=== PATIENT | female | born 1930 | race Caucasian/White ===

== ENCOUNTER 2017-11-22 04:55 | Emergency (ER) | payer MEDICARE, OTHER ==
[2017-11-22] MEDS: Metoclopramide 10 MG/2 ML SDV IVPUSH ONE (05:30)
[2017-11-22 05:33] VITALS: BP 193/69
[2017-11-22] MEDS: Take Home: Doxycycline 100 MG Tab, 4 Tab Pack PO ONE (05:46)
--- NOTE | 2017-11-22 09:53 | EDM.PDOC ---
ED HPI GENERAL MEDICAL PROBLEM - General Chief Complaint: Headache Stated Complaint: Headache Time Seen by Provider: 11/22/17 05:10 Source of Information: Reports: Patient History Limitations: Reports: No Limitations - History of Present Illness INITIAL COMMENTS - FREE TEXT/NARRATIVE: Pt. complains of R frontal headache that she has been experiencing for over a week. States that it is intermittent and worse with palpation of the area. She states that she has been quite congested and has had upper resp. tract symptoms. She states that the headache is always located in the R frontal area and doesn' t deviate in location or severity. Location: Reports: Head, Face Quality: Reports: Ache Severity: Moderate Treatments MANAGER INTERN: Reports: Acetaminophen Other Treatments MANAGER INTERN: at 0230 Right frontal headache Pain Score (Numeric/FACES): 1 - Related Data Allergies Allergy/AdvReac Type Severity Reaction Status Date / Time No Known Allergies Allergy Verified 11/22/17 05:09 Home Meds: Home Meds Aspirin/Dipyridamole [Aggrenox 200-25 MG] 1 cap PO BID 09/26/14 [History] Calcium Carbonate/Vitamin D3 [Calcium 500-Vit D3 400 Tablet] 1 each PO TID 09/26 [History] Clobetasol [Temovate 0.05% Oint] 1 applic TOP BEDTIME PRN 09/26/14 [History] Enalapril [Vasotec] 5 mg PO DAILY 09/26/14 [History] Ferrous Sulfate 325 mg PO BID 09/26/14 [History] Furosemide [Lasix] 20 mg PO DAILY 09/26/14 [History] Levothyroxine 175 mcg PO ACBREAKFAST 09/26/14 [History] Metoprolol Succinate [Toprol XL] 75 mg PO DAILY 09/26/14 [History] Multivitamin with Minerals [Multiple Vitamin] 1 tab PO DAILY 09/26/14 [History] Simvastatin 40 mg PO BEDTIME 09/26/14 [History] Albuterol [Proventil HFA] 2 puff INH Q4H PRN 11/07/14 [History] Beclomethasone Dipropionate [Qvar 40 Mcg] 2 inhalation PO BID 11/07/14 [History] ALPRAZolam [Xanax] 0.25 mg PO TID PRN 03/06/17 [History] Acetaminophen [Tylenol Extra Strength] 1,000 mg PO TID 03/06/17 [History] Aspirin [Ecotrin] 325 g PO DAILY 03/06/17 [History] Cholecalciferol (Vitamin D3) [Vitamin D3] 1,000 unit PO DAILY 03/06/17 [History] Dextromethorphan HBr [Robitussin] 5 mg PO DAILY PRN 03/06/17 [History] Docusate Sodium/Sennosides [Senna Plus] 1 tab PO BID PRN 03/06/17 [History] Gabapentin [Neurontin] 100 mg PO QAM 03/06/17 [History] Gabapentin [Neurontin] 300 mg PO BEDTIME 03/06/17 [History] Loperamide [Imodium] 1 - 2 tab PO DAILY PRN 03/06/17 [History] Maxivision 2 tab PO BID 03/06/17 [History] Omeprazole Magnesium [Prilosec Otc] 20 mg PO DAILY 03/06/17 [History] Sertraline [Zoloft] 50 mg PO BEDTIME 03/06/17 [History] Vitamin B Complex [Super B-50 Complex] 1 tab PO DAILY 03/06/17 [History] predniSONE [Prednisone] 20 mg PO DAILY 03/06/17 [History] tiZANidine HCl [Tizanidine HCl] 2 mg PO TID PRN 03/06/17 [History] Cyanocobalamin (Vitamin B12) [Vitamin B12] 1,000 mcg PO DAILY 08/02/17 [History] Azithromycin [Zithromax] 250 mg PO DAILY 08/23/17 [History] Past Medical History Cardiovascular History: Reports: Hypertension, Other (See Below) Other Cardiovascular History: ankle edema Musculoskeletal History: Reports: Back Pain, Chronic, Other (See Below) Other Musculoskeletal History: shoulder pain Neurological History: Reports: CVA, TIA Psychiatric History: Reports: Anxiety Endocrine/Metabolic History: Reports: Hypothyroidism Social & Family History - Tobacco Use Smoking Status *Q: Never Smoker Used Tobacco, but Quit: No Second Hand Smoke Exposure: No - Alcohol Use Days Per Week of Alcohol Use: 0 - Recreational Drug Use Recreational Drug Use: No ED ROS GENERAL - Review of Systems Review Of Systems: See Below Constitutional: Reports: No Symptoms HEENT: Reports: Rhinitis, Sinus Problem, Throat Pain Respiratory: Reports: No Symptoms Cardiovascular: Reports: No Symptoms Endocrine: Reports: No Symptoms GI/Abdominal: Reports: No Symptoms : Reports: No Symptoms Musculoskeletal: Reports: No Symptoms Skin: Reports: No Symptoms Neurological: Reports: Headache Psychiatric: Reports: No Symptoms Hematologic/Lymphatic: Reports: No Symptoms Immunologic: Reports: No Symptoms ED EXAM, GENERAL - Physical Exam Exam: See Below Exam Limited By: No Limitations General Appearance: Alert, WD/WN, No Apparent Distress Eye Exam: Bilateral Eye: EOMI, Normal Fundi, Normal Inspection, PERRL Ears: Normal External Exam, Normal Canal, Hearing Grossly Normal, Normal TMs Ear Exam: Bilateral Ear: Auricle Normal, Canal Normal, TM normal Nose: Normal Inspection, Nasal Tenderness, Other (pain on palpation/percussion of frontal sinuses) Throat/Mouth: Normal Inspection, Normal Lips, Normal Teeth, Normal Gums, Normal Oropharynx, Normal Voice, No Airway Compromise Head: Atraumatic, Normocephalic Neck: Normal Inspection, Supple, Non-Tender, Full Range of Motion Respiratory/Chest: No Respiratory Distress, Lungs Clear, Normal Breath Sounds, No Accessory Muscle Use, Chest Non-Tender Cardiovascular: Normal Peripheral Pulses, Regular Rate, Rhythm, No Edema, No Gallop, No JVD, No Murmur, No Rub Peripheral Pulses: 4+: Radial (L), Radial (R) GI/Abdominal: Normal Bowel Sounds, Soft, Non-Tender, No Organomegaly, No Distention, No Abnormal Bruit, No Mass (Female) Exam: Deferred Rectal (Female) Exam: Deferred Back Exam: Normal Inspection, Full Range of Motion, NT Extremities: Normal Inspection, Normal Range of Motion, Non-Tender, Normal Capillary Refill, No Pedal Edema Neurological: Alert, Oriented, CN II-XII Intact, Normal Cognition, Normal Gait, Normal Reflexes, No Motor/Sensory Deficits Psychiatric: Normal Affect, Normal Mood Skin Exam: Warm, Dry, Intact, Normal Color, No Rash Lymphatic: No Adenopathy Course - Vital Signs Last Recorded V/S: Last Vital Signs Temp 36.1 C 11/22/17 04:55 Pulse 69 11/22/17 05:28 Resp 16 11/22/17 05:28 BP 193/69 H 11/22/17 05:28 Pulse Ox 94 L 11/22/17 04:55 - Orders/Labs/Meds Meds: Medications Discontinued Medications Generic Name Dose Route Start Last Admin Trade Name Freq PRN Reason Stop Dose Admin Doxycycline Monohydrate 1 packet 11/22/17 05:40 11/22/17 05:46 Take Home: Doxycycline 100 Mg, 4 Tab Pack PO 11/22/17 05:41 1 packet ONETIME ONE Administration Metoclopramide HCl 10 mg 11/22/17 05:21 11/22/17 05:30 Reglan IVPUSH 11/22/17 05:22 10 mg ONETIME ONE Administration Departure - Departure Time of Disposition: 05:45 Disposition: Home, Self-Care 01 Condition: Good Clinical Impression: Acute frontal sinusitis - Discharge Information Instructions: Sinusitis, Adult, Sinus Headache, Doxycycline tablets or capsules Referrals: PCP,Unobtain [Primary Care Provider] - Forms: ED Department Discharge Additional Instructions: doxycyline 100mg twice daily for 7 days. Make sure to finish entire course of medication. Follow-up with rheumatology regarding the hip pain. Follow-up with Dr. Hernandez in 10-14 days for recheck.
[2017-11-22] MEDS ORDERED: Lactated Ringers 1,000 ML IV SCH (10:15)
== END 2017-11-22 05:55 | disposition home or self-care (01) ==
LOC: VM.ED 04:55
DX: J01.10 Acute frontal sinusitis, unspecified (principal); I10 Essential (primary) hypertension; E03.9 Hypothyroidism, unspecified; F41.9 Anxiety disorder, unspecified; Z86.73 Personal history of transient ischemic attack (TIA), and cerebral infarction without residual deficits; Z79.82 Long term (current) use of aspirin; Z79.899 Other long term (current) drug therapy
CPT/HCPCS: 96372; 99283; A9270; J2765

== ENCOUNTER 2017-11-30 06:56 | Observation (INO) | payer MEDICARE, OTHER ==
[2017-11-30] MEDS ORDERED: HYDROmorphone 1 MG/ML Syringe IM ONE (07:37)
[2017-11-30] MEDS ORDERED: ALBUTEROL INH PRN (11:09)
[2017-11-30] MEDS ORDERED: guaiFENesin 100 MG/5 ML Soln 10 ML UD Cup PO PRN (11:09)
[2017-11-30] MEDS ORDERED: Docusate Sodium 100 MG Cap PO PRN (11:09)
[2017-11-30] MEDS: Metoprolol Succinate 25 MG Tab.ER PO SCH (11:45)
[2017-11-30] MEDS: GABAPENTIN 100 MG PO SCH ×2 (11:46→20:31)
[2017-11-30] MEDS: PREDNISONE 5 MG PO SCH (11:46)
[2017-11-30] MEDS: PREDNISONE 2.5 MG PO SCH (11:46)
[2017-11-30] MEDS: Ferrous Sulfate 325 MG Tab PO SCH ×2 (11:48→18:09)
[2017-11-30] MEDS: Cholecalciferol (Vitamin D3) 1,000 Unit Tab PO SCH (11:49)
[2017-11-30] MEDS: Beta-Carotene (Vitamin A) w/Vitamin C & E plus Minerals Tab PO SCH ×2 (11:49→20:34)
[2017-11-30] MEDS: Vitamin B Complex Tab.ER PO SCH (11:49)
[2017-11-30] MEDS: Calcium Carbonate/Vitamin D3 1250 MG-200 Unit Tab PO SCH ×2 (11:49→20:34)
[2017-11-30] MEDS: Omeprazole 20 MG Cap.CR PO SCH (11:49)
[2017-11-30] MEDS: tiZANidine 4 MG Tab PO PRN (11:50)
[2017-11-30] MEDS: Cyanocobalamin (Vitamin B12) 1,000 MCG Tab PO SCH (11:50)
[2017-11-30] MEDS: Acetaminophen/HYDROcodone 325-10 MG Tab PO PRN ×2 (15:02→20:34)
--- NOTE | 2017-11-30 16:17 | EDM.PDOC ---
ED HPI GENERAL MEDICAL PROBLEM - General Chief Complaint: Back Pain or Injury Stated Complaint: back pain Time Seen by Provider: 11/30/17 06:56 Source of Information: Reports: Patient History Limitations: Reports: No Limitations - History of Present Illness INITIAL COMMENTS - FREE TEXT/NARRATIVE: Please use as admission H and P. Pt. presents to ER with low back pain with radiation down both legs. The radiation into the legs is intermittent. Denies any fever or chills. No urinary incontinence or retention. She states that she was seen in the clinic yesterday and had an L spine series. These images were tracked down, and the radiologist did not note any acute fracture or other pathology. Pt. has severe spinal arthritis, osteopenia, and spinal stenosis. These chronic medical issues have been problematic in the past. Pt. does see rheumatology and is chronicially on steroid. Pt. mother and pt. do not wish for pt. to take any narcotic pain medication, and her kidney function doesnt allow her to take NSAIDS. Onset: Today Location: Reports: Back Quality: Reports: Ache, Stabbing Severity: Severe Context: Denies: Trauma Associated Symptoms: Reports: No Other Symptoms Back Pain Score (Numeric/FACES): 3 - Related Data Allergies Allergy/AdvReac Type Severity Reaction Status Date / Time No Known Allergies Allergy Verified 11/22/17 05:09 Home Meds: Home Meds Aspirin/Dipyridamole [Aggrenox 200-25 MG] 1 cap PO BID 09/26/14 [History] Calcium Carbonate/Vitamin D3 [Calcium 500-Vit D3 400 Tablet] 1 each PO BID 09/26 [History] Ferrous Sulfate 325 mg PO BID 09/26/14 [History] Furosemide [Lasix] 20 mg PO DAILY 09/26/14 [History] Metoprolol Succinate [Toprol XL] 75 mg PO DAILY 09/26/14 [History] Simvastatin 40 mg PO BEDTIME 09/26/14 [History] Albuterol [Proventil HFA] 2 puff INH Q4H PRN 11/07/14 [History] ALPRAZolam [Xanax] 0.25 mg PO TID PRN 03/06/17 [History] Aspirin [Ecotrin] 325 mg PO DAILY 03/06/17 [History] Cholecalciferol (Vitamin D3) [Vitamin D3] 1,000 unit PO DAILY 03/06/17 [History] Gabapentin [Neurontin] 100 mg PO DAILY 03/06/17 [History] Gabapentin [Neurontin] 300 mg PO BEDTIME 03/06/17 [History] Loperamide [Imodium] 1 - 2 tab PO DAILY PRN 03/06/17 [History] Maxivision 2 tab PO BID 03/06/17 [History] Omeprazole Magnesium [Prilosec Otc] 20 mg PO DAILY 03/06/17 [History] Sertraline [Zoloft] 50 mg PO BEDTIME 03/06/17 [History] Vitamin B Complex [Super B-50 Complex] 1 tab PO DAILY 03/06/17 [History] tiZANidine HCl [Tizanidine HCl] 2 mg PO TID PRN 03/06/17 [History] Cyanocobalamin (Vitamin B12) [Vitamin B12] 1,000 mcg PO DAILY 08/02/17 [History] Acetaminophen [Tylenol] 650 mg PO Q4H PRN 11/30/17 [History] Docusate Sodium 100 - 200 mg PO BID PRN 11/30/17 [History] Levothyroxine 175 mcg PO DAILY 11/30/17 [History] guaiFENesin [Robitussin] 100 mg PO Q4H PRN 11/30/17 [History] predniSONE [Prednisone] 7.5 mg PO DAILY 11/30/17 [History] Past Medical History Cardiovascular History: Reports: Hypertension, Other (See Below) Other Cardiovascular History: ankle edema Musculoskeletal History: Reports: Back Pain, Chronic, Other (See Below) Other Musculoskeletal History: shoulder pain Neurological History: Reports: CVA, TIA Psychiatric History: Reports: Anxiety Endocrine/Metabolic History: Reports: Hypothyroidism Social & Family History - Tobacco Use Smoking Status *Q: Never Smoker - Caffeine Use Caffeine Use: Reports: Coffee - Recreational Drug Use Recreational Drug Use: No ED ROS GENERAL - Review of Systems Review Of Systems: See Below Constitutional: Reports: No Symptoms HEENT: Reports: No Symptoms Respiratory: Reports: No Symptoms Cardiovascular: Reports: No Symptoms Endocrine: Reports: No Symptoms GI/Abdominal: Reports: No Symptoms : Reports: No Symptoms Musculoskeletal: Reports: Back Pain Skin: Reports: No Symptoms Neurological: Reports: No Symptoms Psychiatric: Reports: No Symptoms Hematologic/Lymphatic: Reports: No Symptoms Immunologic: Reports: No Symptoms ED EXAM, GENERAL - Physical Exam Exam: See Below Exam Limited By: No Limitations General Appearance: Alert, WD/WN, No Apparent Distress Neck: Normal Inspection, Supple, Non-Tender, Full Range of Motion Respiratory/Chest: No Respiratory Distress, Lungs Clear, Normal Breath Sounds, No Accessory Muscle Use, Chest Non-Tender Cardiovascular: Normal Peripheral Pulses, Regular Rate, Rhythm, No Edema, No Gallop, No JVD, No Murmur, No Rub Peripheral Pulses: 4+: Radial (L), Radial (R) GI/Abdominal: Normal Bowel Sounds, Soft, Non-Tender, No Organomegaly, No Distention, No Abnormal Bruit, No Mass (Female) Exam: Deferred Rectal (Female) Exam: Deferred Back Exam: Decreased Range of Motion, Muscle Spasm, Paraspinal Tenderness, Vertebral Tenderness Extremities: Normal Inspection, Normal Range of Motion, Non-Tender, Normal Capillary Refill, No Pedal Edema Neurological: Alert, Oriented, CN II-XII Intact, Normal Cognition, Normal Gait, Normal Reflexes, No Motor/Sensory Deficits Psychiatric: Normal Affect, Normal Mood Skin Exam: Warm, Dry, Intact, Normal Color, No Rash Course - Vital Signs Last Recorded V/S: Last Vital Signs Temp 36.9 C 11/30/17 14:00 Pulse 80 11/30/17 14:00 Resp 22 H 11/30/17 14:00 BP 151/68 H 11/30/17 14:00 Pulse Ox 92 L 11/30/17 14:00 - Orders/Labs/Meds Orders: Medication Orders Hydrocodone Bitart/Acetaminophen ([place] 325-10 Mg) 1 tab PO Q4H PRN PRN Reason: Pain Last Admin: 11/30/17 15:02 Dose: 1 tab Alprazolam (Xanax) 0.25 mg PO TID PRN PRN Reason: Anxiety Aspirin (Ecotrin) 325 mg PO DAILY [facility] Calcium Carbonate (Calcium Carbonate/Vitamin D 1250 Mg-200 Unit) 1 tab PO BID [facility] Last Admin: 11/30/17 11:49 Dose: 1 tab Cholecalciferol (Vitamin D3) 1,000 units PO DAILY [facility] Last Admin: 11/30/17 11:49 Dose: 1,000 units Cyanocobalamin (Vitamin B12) 1,000 mcg PO DAILY [facility] Last Admin: 11/30/17 11:50 Dose: 1,000 mcg Dipyridamole/Aspirin (Aggrenox 200-25 Mg) 1 cap PO BID [facility] Docusate Sodium (Colace) 100 - 200 mg PO BID PRN PRN Reason: Constipation Ferrous Sulfate (Ferrous Sulfate) 325 mg PO BIDMEALS [facility] Last Admin: 11/30/17 11:48 Dose: 325 mg Furosemide (Lasix) 20 mg PO DAILY [facility] Gabapentin (Neurontin) 100 mg PO DAILY [facility] Last Admin: 11/30/17 11:46 Dose: 100 mg Gabapentin (Neurontin) 300 mg PO BEDTIME [facility] Guaifenesin (Robitussin) 100 mg PO Q4H PRN PRN Reason: Congestion Levothyroxine Sodium (Levothyroxine) 175 mcg PO DAILY [facility] Last Admin: 11/30/17 11:45 Dose: 175 mcg Metoprolol Succinate (Toprol Xl) 75 mg PO DAILY [facility] Last Admin: 11/30/17 11:45 Dose: 75 mg Multivitamins/Minerals (Prosight) 2 tab PO BID [facility] Last Admin: 11/30/17 11:49 Dose: 2 tab Albuterol [Proventil (Hfa] (Own Supply)) 2 puff INH Q4H PRN PRN Reason: Shortness of Breath Prednisone 2.5mg ( (Own Supply)) 1 each PO DAILY [facility] Stop: 12/04/17 08:01 Last Admin: 11/30/17 11:46 Dose: 1 each Omeprazole (Omeprazole) 20 mg PO DAILY [facility] Last Admin: 11/30/17 11:49 Dose: 20 mg Prednisone (Prednisone) 5 mg PO DAILY [facility] Last Admin: 11/30/17 11:46 Dose: 5 mg Sertraline HCl (Zoloft) 50 mg PO BEDTIME [facility] Simvastatin (Zocor) 40 mg PO BEDTIME [facility] Tizanidine HCl (Zanaflex) 2 mg PO TID PRN PRN Reason: Muscle Spasm Last Admin: 11/30/17 11:50 Dose: 2 mg Vitamin B Complex (Balanced B-50) 1 each PO DAILY [facility] Last Admin: 11/30/17 11:49 Dose: 1 each Meds: Medications Generic Name Dose Route Start Last Admin Trade Name Freq PRN Reason Stop Dose Admin Hydrocodone Bitart/Acetaminophen 1 tab 11/30/17 08:46 11/30/17 15:02 [place] 325-10 Mg PO 1 tab Q4H PRN Administration Pain Alprazolam 0.25 mg 11/30/17 11:09 Xanax PO TID PRN Anxiety Aspirin 325 mg 12/01/17 08:00 Ecotrin PO DAILY [facility] Calcium Carbonate 1 tab 11/30/17 11:30 11/30/17 11:49 Calcium Carbonate/Vitamin D 1250 Mg-200 Unit PO 1 tab BID [facility] Administration Cholecalciferol 1,000 units 11/30/17 11:30 11/30/17 11:49 Vitamin D3 PO 1,000 units DAILY [facility] Administration Cyanocobalamin 1,000 mcg 11/30/17 11:30 11/30/17 11:50 Vitamin B12 PO 1,000 mcg DAILY [facility] Administration Dipyridamole/Aspirin 1 cap 11/30/17 20:00 Aggrenox 200-25 Mg PO BID [facility] Docusate Sodium 100 - 200 mg 11/30/17 11:09 Colace PO BID PRN Constipation Ferrous Sulfate 325 mg 11/30/17 11:30 11/30/17 11:48 Ferrous Sulfate PO 325 mg BIDMEALS [facility] Administration Furosemide 20 mg 12/01/17 08:00 Lasix PO DAILY [facility] Gabapentin 100 mg 11/30/17 11:30 11/30/17 11:46 Neurontin PO 100 mg DAILY [facility] Administration Gabapentin 300 mg 11/30/17 20:00 Neurontin PO BEDTIME [facility] Guaifenesin 100 mg 11/30/17 11:09 Robitussin PO Q4H PRN Congestion Levothyroxine Sodium 175 mcg 11/30/17 11:30 11/30/17 11:45 Levothyroxine PO 175 mcg DAILY [facility] Administration Metoprolol Succinate 75 mg 11/30/17 11:30 11/30/17 11:45 Toprol Xl PO 75 mg DAILY [facility] Administration Multivitamins/Minerals 2 tab 11/30/17 11:30 11/30/17 11:49 Prosight PO 2 tab BID [facility] Administration Albuterol [Proventil 2 puff 11/30/17 11:09 Hfa] (Own Supply) INH Q4H PRN Shortness of Breath Prednisone 2.5mg ( 1 each 11/30/17 11:45 11/30/17 11:46 Own Supply) PO 12/04/17 08:01 1 each DAILY [facility] Administration Omeprazole 20 mg 11/30/17 11:30 05/10/18 11:49 Omeprazole PO 20 mg DAILY [facility] Administration Prednisone 5 mg 11/30/17 11:45 11/30/17 11:46 Prednisone PO 5 mg DAILY [facility] Administration Sertraline HCl 50 mg 11/30/17 20:00 Zoloft PO BEDTIME [facility] Simvastatin 40 mg 11/30/17 20:00 Zocor PO BEDTIME [facility] Tizanidine HCl 2 mg 11/30/17 11:09 11/30/17 11:50 Zanaflex PO 2 mg TID PRN Administration Muscle Spasm Vitamin B Complex 1 each 11/30/17 11:45 11/30/17 11:49 Balanced B-50 PO 1 each DAILY [facility] Administration Discontinued Medications Generic Name Dose Route Start Last Admin Trade Name Freq PRN Reason Stop Dose Admin Hydromorphone HCl 1 mg 11/30/17 07:37 11/30/17 07:47 Dilaudid IM 11/30/17 07:38 1 mg ONETIME ONE Administration - Radiology Interpretation Free Text/Narrative:: L spine radiographs taken yesterday were negative for acute pathology. Departure - Departure Time of Disposition: 08:40 Disposition: Admitted As Inpatient 66 Clinical Impression: Low back pain of thoracolumbar region with sciatica - Discharge Information
[2017-11-30] MEDS: ASPIRIN PO SCH (20:32)
[2017-11-30] MEDS: SIMVASTATIN 40 MG PO SCH (20:32)
[2017-11-30] MEDS: DIPYRIDAMOLE PO SCH (20:32)
[2017-12-01] MEDS: Acetaminophen/HYDROcodone 325-10 MG Tab PO PRN ×2 (01:52→08:33)
[2017-12-01] MEDS: Beta-Carotene (Vitamin A) w/Vitamin C & E plus Minerals Tab PO SCH ×2 (08:26→20:01)
[2017-12-01] MEDS: ASPIRIN PO SCH ×2 (08:26→20:01)
[2017-12-01] MEDS: DIPYRIDAMOLE PO SCH ×2 (08:26→20:01)
[2017-12-01] MEDS: Vitamin B Complex Tab.ER PO SCH (08:27)
[2017-12-01] MEDS: Omeprazole 20 MG Cap.CR PO SCH (08:27)
[2017-12-01] MEDS: Cyanocobalamin (Vitamin B12) 1,000 MCG Tab PO SCH (08:27)
[2017-12-01] MEDS: Calcium Carbonate/Vitamin D3 1250 MG-200 Unit Tab PO SCH ×2 (08:27→20:01)
[2017-12-01] MEDS: Aspirin 325 MG Tab.EC PO SCH (08:27)
[2017-12-01] MEDS: GABAPENTIN 100 MG PO SCH ×2 (08:27→20:01)
[2017-12-01] MEDS: Ferrous Sulfate 325 MG Tab PO SCH ×2 (08:27→18:47)
[2017-12-01] MEDS: Cholecalciferol (Vitamin D3) 1,000 Unit Tab PO SCH (08:27)
[2017-12-01] MEDS: PREDNISONE 5 MG PO SCH (08:28)
[2017-12-01] MEDS: Metoprolol Succinate 25 MG Tab.ER PO SCH (08:29)
[2017-12-01] MEDS: PREDNISONE 2.5 MG PO SCH (08:30)
[2017-12-01] MEDS: FUROSEMIDE PO SCH (08:30)
[2017-12-01] MEDS: tiZANidine 4 MG Tab PO PRN (08:34)
--- NOTE | 2017-12-01 09:36 | PCM.PN ---
- General Info Date of Service: 12/01/17 Admission Dx/Problem (Free Text): Pt. presented to ER yesterday with low back pain with radiation down both legs. The radiation into the legs is intermittent. Denies any fever or chills. No urinary incontinence or retention. She states that she was seen in the clinic two days ago and had an L spine series. These images were tracked down, and the radiologist did not note any acute fracture or other pathology. Pt. has severe spinal arthritis, osteopenia, and spinal stenosis. These chronic medical issues have been problematic in the past. Pt. does see rheumatology and is chronicially on steroid. Pt. mother and pt. do not wish for pt. to take any narcotic pain medication, and her kidney function doesnt allow her to take NSAIDS. Subjective Update: Patient is quite lethargic this morning from pain medication. Patient denies any pain, states it is minimal. Patient speaks slowly and is groggy. Patient denies any problems. Functional Status: Reports: Pain Controlled, Tolerating Diet, Urinating Pain Score: 2 - Review of Systems General: Reports: Weakness, Fatigue. Denies: Fever Pulmonary: Denies: Shortness of Breath, Cough Cardiovascular: Denies: Chest Pain, Palpitations Gastrointestinal: Denies: Abdominal Pain, Nausea, Vomiting Skin: Reports: No Symptoms Neurological: Reports: Confusion. Denies: Dizziness, Headache - Patient Data Vitals - Most Recent: Last Vital Signs Temp 36.4 C 12/01/17 09:27 Pulse 84 12/01/17 09:27 Resp 18 12/01/17 09:27 BP 105/54 L 12/01/17 09:27 Pulse Ox 96 12/01/17 09:27 Weight - Most Recent: 77.746 kg I&O - Last 24 Hours: Intake & Output 11/30/17 12/01/17 12/01/17 22:59 06:59 14:59 Intake Total 240 250 180 Output Total 150 Balance 90 250 180 Lab Results Last 24 Hours: Laboratory Results - last 24 hr 11/30/17 11/30/17 11/30/17 Range/Units 09:19 09:19 09:19 WBC 15.2 H (4.0-10.0) x10^3/uL RBC 3.39 L (4.00-5.50) x10^6/uL Hgb 12.1 D (12.0-16.0) g/dL Hct 37.6 (33.0-47.0) % MCV 110.9 H D (78.0-93.0) fL MCH 35.7 H (26.0-32.0) pg MCHC 32.2 (32.0-36.0) g/dL RDW Coeff of Kimber 12.0 (10.0-15.0) % Plt Count 193 D (130-400) x10^3/uL Add Manual Diff Yes Neutrophils % (Manual) 86 H (50-80) % Band Neutrophils % 1 (0-6) % Lymphocytes % (Manual) 4 L (25-50) % Monocytes % (Manual) 9 (2-11) % Hypersegmented Neuts Moderate H Toxic Granulation Rare Platelet Estimate Adequate Polychromasia Rare Hypochromasia 1+ slight H Macrocytosis 2+ moderate H Tear Drop Cells Rare Ovalocytes 1+ slight H PT 10.0 (9.6-11.4) SEC INR 1.0 L (2.0-3.5) Sodium 140 (136-145) mmol/L Potassium 4.9 (3.5-5.1) mmol/L Chloride 102 (98-107) mmol/L Carbon Dioxide 28 (21-32) mmol/L Anion Gap 14.9 (10-20) mmol/L BUN 36 H (7-18) mg/dL Creatinine 1.5 H (0.55-1.02) mg/dL Est Cr Clr Drug Dosing 21.86 mL/min Estimated GFR (MDRD) 33 Glucose 117 H (74-106) mg/dL Calcium 9.2 (8.5-10.1) mg/dL Corrected Calcium 9.44 (8.5-10.1) mg/dL Total Bilirubin 0.6 (0.2-1.0) mg/dL AST 26 (15-37) U/L ALT 21 (14-59) U/L Alkaline Phosphatase 67 (46-116) U/L C-Reactive Protein 11.2 H (<=0.9) mg/dL Total Protein 7.5 (6.4-8.2) g/dL Albumin 3.7 (3.4-5.0) g/dL Globulin 3.8 Albumin/Globulin Ratio 0.97 Med Orders - Current: Current Medications Hydrocodone Bitart/Acetaminophen (Blaine 325-10 Mg) 1 tab PO Q4H PRN PRN Reason: Pain Last Admin: 12/01/17 08:33 Dose: 1 tab Alprazolam (Xanax) 0.25 mg PO TID PRN PRN Reason: Anxiety Aspirin (Ecotrin) 325 mg PO DAILY [facility] Last Admin: 12/01/17 08:27 Dose: 325 mg Calcium Carbonate (Calcium Carbonate/Vitamin D 1250 Mg-200 Unit) 1 tab PO BID [facility] Last Admin: 12/01/17 08:27 Dose: 1 tab Cholecalciferol (Vitamin D3) 1,000 units PO DAILY [facility] Last Admin: 12/01/17 08:27 Dose: 1,000 units Cyanocobalamin (Vitamin B12) 1,000 mcg PO DAILY [facility] Last Admin: 12/01/17 08:27 Dose: 1,000 mcg Dipyridamole/Aspirin (Aggrenox 200-25 Mg) 1 cap PO BID [facility] Last Admin: 12/01/17 08:26 Dose: 1 cap Docusate Sodium (Colace) 100 - 200 mg PO BID PRN PRN Reason: Constipation Ferrous Sulfate (Ferrous Sulfate) 325 mg PO BIDMEALS [facility] Last Admin: 12/01/17 08:27 Dose: 325 mg Furosemide (Lasix) 20 mg PO DAILY [facility] Last Admin: 12/01/17 08:30 Dose: 20 mg Gabapentin (Neurontin) 100 mg PO DAILY [facility] Last Admin: 12/01/17 08:27 Dose: 100 mg Gabapentin (Neurontin) 300 mg PO BEDTIME [facility] Last Admin: 11/30/17 20:31 Dose: 300 mg Guaifenesin (Robitussin) 100 mg PO Q4H PRN PRN Reason: Congestion Levothyroxine Sodium (Levothyroxine) 175 mcg PO DAILY [facility] Last Admin: 12/01/17 08:29 Dose: 175 mcg Metoprolol Succinate (Toprol Xl) 75 mg PO DAILY [facility] Last Admin: 12/01/17 08:29 Dose: 75 mg Multivitamins/Minerals (Prosight) 2 tab PO BID [facility] Last Admin: 12/01/17 08:26 Dose: 2 tab Albuterol [Proventil (Hfa] (Own Supply)) 2 puff INH Q4H PRN PRN Reason: Shortness of Breath Prednisone 2.5mg ( (Own Supply)) 1 each PO DAILY [facility] Stop: 12/04/17 08:01 Last Admin: 12/01/17 08:30 Dose: 1 each Omeprazole (Omeprazole) 20 mg PO DAILY [facility] Last Admin: 12/01/17 08:27 Dose: 20 mg Prednisone (Prednisone) 5 mg PO DAILY [facility] Last Admin: 12/01/17 08:28 Dose: 5 mg Sertraline HCl (Zoloft) 50 mg PO BEDTIME [facility] Last Admin: 11/30/17 20:31 Dose: 50 mg Simvastatin (Zocor) 40 mg PO BEDTIME [facility] Last Admin: 11/30/17 20:32 Dose: 40 mg Tizanidine HCl (Zanaflex) 2 mg PO TID PRN PRN Reason: Muscle Spasm Last Admin: 12/01/17 08:34 Dose: 2 mg Vitamin B Complex (Balanced B-50) 1 each PO DAILY [facility] Last Admin: 12/01/17 08:27 Dose: 1 each Discontinued Medications Hydromorphone HCl (Dilaudid) 1 mg IM ONETIME ONE Stop: 11/30/17 07:38 Last Admin: 11/30/17 07:47 Dose: 1 mg - Exam General: Alert, Cooperative, No Acute Distress, Lethargic Neck: Supple Lungs: Clear to Auscultation, Normal Respiratory Effort Cardiovascular: Regular Rate, Regular Rhythm GI/Abdominal Exam: Normal Bowel Sounds, Soft, Non-Tender Back Exam: Normal Inspection Peripheral Pulses: 2+: Radial (L), Radial (R) Skin: Warm, Dry Wound/Incisions: Dressing Dry and Intact Neurological: No New Focal Deficit - Problem List & Annotations (1) Low back pain of thoracolumbar region with sciatica SNOMED Code(s): 813286028 Code(s): M54.40 - LUMBAGO WITH SCIATICA, UNSPECIFIED SIDE Status: Chronic Priority: Medium Current Visit: Yes - Problem List Review Problem List Initiated/Reviewed/Updated: Yes - Assessment Assessment:: Lumbago with sciatica - Plan Plan:: 87 yo female with a past medical history of chronic back pain, HTN, Hypothyroidism, was admitted to the observation unit at [facility] for pain control. The patient apparently has many back issues and is being seen by Rheumatology. She is currently taking steroids. She did have LS spine plain film a couple of days ago which did not show any etiology for patients current symptoms. It is unclear at this point what the exact plan of care for this patient. Will request Case management to review chart and visit with patient and family to develop a plan of care and plan for discharge tomorrow. Continue observation care for now. Once a POC is completed, will look to discharge.
[2017-12-01] MEDS ORDERED: Sodium Chloride 0.9% 10 ML Syringe FLUSH PRN (11:14)
[2017-12-01] MEDS ORDERED: Ketorolac 15 MG/ML SDV IVPUSH ONE (11:14)
[2017-12-01] MEDS ORDERED: Sodium Chloride 0.9% 500 ML IV ONE (11:15)
--- NOTE | 2017-12-01 11:40 | PCM.PN ---
- General Info Date of Service: 12/01/17 Admission Dx/Problem (Free Text): Pt. presented to ER yesterday with low back pain with radiation down both legs. The radiation into the legs is intermittent. Denies any fever or chills. No urinary incontinence or retention. She states that she was seen in the clinic two days ago and had an L spine series. These images were tracked down, and the radiologist did not note any acute fracture or other pathology. Pt. has severe spinal arthritis, osteopenia, and spinal stenosis. These chronic medical issues have been problematic in the past. Pt. does see rheumatology and is chronicially on steroid. Pt. mother and pt. do not wish for pt. to take any narcotic pain medication, and her kidney function doesnt allow her to take NSAIDS. Subjective Update: Nursing contacted provider on-call stating the patient is seen things in the ceiling and the ceiling is going to fall she is grabbing and pulling at things. Functional Status: Reports: Tolerating Diet, Urinating - Review of Systems General: Reports: Fatigue Pulmonary: Reports: No Symptoms Cardiovascular: Reports: No Symptoms Gastrointestinal: Reports: No Symptoms Genitourinary: Reports: Dysuria, Urgency Musculoskeletal: Reports: Back Pain (left flank pain with pain radiating down right leg/sciatica ), Leg Pain Skin: Reports: Bruising Neurological: Reports: Confusion (nursing report. Pt currently a/o x 4 ), Trouble Speaking (nursing report approx 1 hour after taking am dose of pain medication. symptoms resolved now), Difficulty Walking, Weakness (chronic issue- uses walker ). Denies: Syncope, Tingling - Patient Data Vitals - Most Recent: Last Vital Signs Temp 36.4 C 12/01/17 09:27 Pulse 84 12/01/17 09:27 Resp 18 12/01/17 09:27 BP 105/54 L 12/01/17 09:27 Pulse Ox 96 12/01/17 09:27 Weight - Most Recent: 77.746 kg I&O - Last 24 Hours: Intake & Output 11/30/17 12/01/17 12/01/17 22:59 06:59 14:59 Intake Total 240 250 330 Output Total 150 Balance 90 250 330 Med Orders - Current: Current Medications Aspirin (Ecotrin) 325 mg PO DAILY [facility] Last Admin: 12/01/17 08:27 Dose: 325 mg Calcium Carbonate (Calcium Carbonate/Vitamin D 1250 Mg-200 Unit) 1 tab PO BID [facility] Last Admin: 12/01/17 08:27 Dose: 1 tab Cholecalciferol (Vitamin D3) 1,000 units PO DAILY [facility] Last Admin: 12/01/17 08:27 Dose: 1,000 units Cyanocobalamin (Vitamin B12) 1,000 mcg PO DAILY [facility] Last Admin: 12/01/17 08:27 Dose: 1,000 mcg Cyclobenzaprine HCl (Flexeril) 5 mg PO TID PRN PRN Reason: severe pain Dipyridamole/Aspirin (Aggrenox 200-25 Mg) 1 cap PO BID [facility] Last Admin: 12/01/17 08:26 Dose: 1 cap Docusate Sodium (Colace) 100 - 200 mg PO BID PRN PRN Reason: Constipation Ferrous Sulfate (Ferrous Sulfate) 325 mg PO BIDMEALS [facility] Last Admin: 12/01/17 08:27 Dose: 325 mg Furosemide (Lasix) 20 mg PO DAILY [facility] Last Admin: 12/01/17 08:30 Dose: 20 mg Gabapentin (Neurontin) 100 mg PO DAILY [facility] Last Admin: 12/01/17 08:27 Dose: 100 mg Gabapentin (Neurontin) 300 mg PO BEDTIME [facility] Last Admin: 11/30/17 20:31 Dose: 300 mg Sodium Chloride (Normal Saline) 500 mls @ 250 mls/hr IV ONETIME ONE Stop: 12/01/17 13:14 Last Admin: 12/01/17 11:32 Dose: 250 mls/hr Levothyroxine Sodium (Levothyroxine) 175 mcg PO DAILY [facility] Last Admin: 12/01/17 08:29 Dose: 175 mcg Metoprolol Succinate (Toprol Xl) 75 mg PO DAILY [facility] Last Admin: 12/01/17 08:29 Dose: 75 mg Multivitamins/Minerals (Prosight) 2 tab PO BID [facility] Last Admin: 12/01/17 08:26 Dose: 2 tab Albuterol [Proventil (Hfa] (Own Supply)) 2 puff INH Q4H PRN PRN Reason: Shortness of Breath Prednisone 2.5mg ( (Own Supply)) 1 each PO DAILY [facility] Stop: 12/04/17 08:01 Last Admin: 12/01/17 08:30 Dose: 1 each Omeprazole (Omeprazole) 20 mg PO DAILY [facility] Last Admin: 12/01/17 08:27 Dose: 20 mg Prednisone (Prednisone) 5 mg PO DAILY [facility] Last Admin: 12/01/17 08:28 Dose: 5 mg Sertraline HCl (Zoloft) 50 mg PO BEDTIME [facility] Last Admin: 11/30/17 20:31 Dose: 50 mg Simvastatin (Zocor) 40 mg PO BEDTIME [facility] Last Admin: 11/30/17 20:32 Dose: 40 mg Sodium Chloride (Saline Flush) 10 ml FLUSH ASDIRECTED PRN PRN Reason: Keep Vein Open Vitamin B Complex (Balanced B-50) 1 each PO DAILY [facility] Last Admin: 12/01/17 08:27 Dose: 1 each Discontinued Medications Hydrocodone Bitart/Acetaminophen ([place] 325-10 Mg) 1 tab PO Q4H PRN PRN Reason: Pain Last Admin: 12/01/17 08:33 Dose: 1 tab Alprazolam (Xanax) 0.25 mg PO TID PRN PRN Reason: Anxiety Guaifenesin (Robitussin) 100 mg PO Q4H PRN PRN Reason: Congestion Hydromorphone HCl (Dilaudid) 1 mg IM ONETIME ONE Stop: 11/30/17 07:38 Last Admin: 11/30/17 07:47 Dose: 1 mg Ketorolac Tromethamine (Toradol) 15 mg IVPUSH ONETIME ONE Stop: 12/01/17 11:15 Tizanidine HCl (Zanaflex) 2 mg PO TID PRN PRN Reason: Muscle Spasm Last Admin: 12/01/17 08:34 Dose: 2 mg - Exam General: Alert, Oriented, Cooperative, No Acute Distress HEENT: Pupils Equal, EOMI, Mucous Membr. Moist/Welch Neck: Supple Lungs: Clear to Auscultation, Normal Respiratory Effort Cardiovascular: Regular Rate, Regular Rhythm GI/Abdominal Exam: Normal Bowel Sounds, Soft, No Distention Back Exam: Muscle Spasm, Other (left flank pain and tenderness with palpation ) Extremities: Normal Inspection, No Pedal Edema, Normal Capillary Refill Skin: Warm, Intact, Ecchymosis Psy/Mental Status: Alert, Normal Affect, Normal Mood - Problem List Review Problem List Initiated/Reviewed/Updated: Yes - My Orders Last 24 Hours: My Active Orders 12/01/17 11:14 Sodium Chloride 0.9% [Saline Flush] 10 ml FLUSH ASDIRECTED PRN Peripheral IV Insertion Adult [OM.PC] Stat 12/01/17 11:15 Abdomen Pelvis wo Cont [CT] Stat Sodium Chloride 0.9% [Normal Saline] 500 ml IV ONETIME 12/01/17 11:16 CBC WITH AUTO DIFF [HEME] Urgent COMPREHENSIVE METABOLIC PN,CMP [CHEM] Urgent 12/01/17 11:19 Cyclobenzaprine [Flexeril] 5 mg PO TID PRN 12/01/17 11:20 Cooling Warming Measures [RC] ASDIRECTED Heat Therapy [OM.PC] Routine - Assessment Assessment:: Lumbago with sciatica - Plan Plan:: 87 yo female with a past medical history of chronic back pain, HTN, Hypothyroidism, was admitted to the observation unit at [facility] for pain control. The patient apparently has many back issues and is being seen by Rheumatology. She is currently taking steroids. She did have LS spine plain film a couple of days ago which did not show any etiology for patients current symptoms. Case management has been consulted to review chart and visit with patient and family to develop a plan of care and plan for discharge. Nursing contacted staff provider stating patient has become confused and agitated stating that the ceiling is falling through and she is get out of here. Daughter 's concern regarding the patient's pain management because the patient has been extremely confused since taking the medication this morning. After reviewing the patient's laboratory results that were completed in the ER yesterday and the patient's current status. It is advised that the patient will be taken off of all controlled pain medications at this point. Labs completed yesterday showed an elevated white count of unknown etiology. With the ongoing confusion/ discomfort of her lower flank area we will go ahead and run a urinalysis along with a CT scan to rule out infectious causes or kidney stones. Patient is exhibiting extensive signs of discomfort when examining the left flank area. Patient is completely alert and oriented at this time able to answer all questions appropriately. She does still have sciatica discomfort as well. Vascular assessment is negative at this point. Nursing states that she is back to her baseline. To the commode while provider was in the room. Was shaky on her feet but was able to ambulate with assistance. Urine that was in the commode did exhibit a foul smell and extreme cloudiness. A UA has been ordered along with repeat labs today for further investigation. Non-sedating muscle relaxer and pain control is ordered for the patient along with saline bolus of 500 mg to help flush the kidneys. Will develop a better plan of care once imaging and labs are complete.
[2017-12-01] MEDS ORDERED: Sodium Chloride 0.9% 500 ML IV SCH (13:30)
--- NOTE | 2017-12-01 14:24 | PCM.SN ---
- Free Text/Narrative Note: 1.CT results show moderate distention of the urinary bladder and left-sided hernia. Labs reveal elevated white count, however it is trending down. 2. Patient has substantial amount of foul-smelling urine with sediment urine obtained and sent. 3. Pabon catheter inserted after bladder scanner revealed greater than 1000ml of fluid retaining in the bladder. 4. Patient feels much better with the Toradol on board. She feels that all of her fuzzy/dizzy symptoms have resolved.
[2017-12-01] MEDS: Sulfamethoxazole/Trimethoprim 400-80 MG Tab PO SCH ×2 (15:18→20:01)
[2017-12-01] MEDS: Cyclobenzaprine 10 MG Tab PO PRN ×2 (15:18→20:02)
[2017-12-01] MEDS ORDERED: Acetaminophen 325 MG Tab PO PRN (18:28)
[2017-12-01] MEDS: Ketorolac 15 MG/ML SDV IVPUSH SCH (18:46)
[2017-12-01] MEDS: SIMVASTATIN 40 MG PO SCH (20:01)
[2017-12-01] MEDS ORDERED: HYDROcodone/Acetaminophen 2.5-108/5 ML Soln UD Cup PO PRN ×2 (21:13→22:15)
[2017-12-01] MEDS ORDERED: Acetaminophen/HYDROcodone 325-5 MG Tab PO PRN (22:15)
[2017-12-02] MEDS: Ketorolac 15 MG/ML SDV IVPUSH SCH ×3 (00:33→12:04)
[2017-12-02] MEDS: Acetaminophen/HYDROcodone 325-5 MG Tab PO PRN ×2 (04:19→12:14)
[2017-12-02] MEDS: Beta-Carotene (Vitamin A) w/Vitamin C & E plus Minerals Tab PO SCH (07:54)
[2017-12-02] MEDS: Vitamin B Complex Tab.ER PO SCH (07:55)
[2017-12-02] MEDS: Aspirin 325 MG Tab.EC PO SCH (07:55)
[2017-12-02] MEDS: Ferrous Sulfate 325 MG Tab PO SCH (07:55)
[2017-12-02] MEDS: Cholecalciferol (Vitamin D3) 1,000 Unit Tab PO SCH (07:55)
[2017-12-02] MEDS: Sulfamethoxazole/Trimethoprim 400-80 MG Tab PO SCH (07:55)
[2017-12-02] MEDS: Calcium Carbonate/Vitamin D3 1250 MG-200 Unit Tab PO SCH (07:55)
[2017-12-02] MEDS: Cyanocobalamin (Vitamin B12) 1,000 MCG Tab PO SCH (07:55)
[2017-12-02] MEDS: ASPIRIN PO SCH (07:56)
[2017-12-02] MEDS: DIPYRIDAMOLE PO SCH (07:56)
[2017-12-02] MEDS: GABAPENTIN 100 MG PO SCH (07:56)
[2017-12-02] MEDS: Metoprolol Succinate 25 MG Tab.ER PO SCH (07:57)
[2017-12-02] MEDS: FUROSEMIDE PO SCH (07:57)
[2017-12-02] MEDS: PREDNISONE 5 MG PO SCH (07:57)
[2017-12-02] MEDS: PREDNISONE 2.5 MG PO SCH (07:58)
[2017-12-02] MEDS: Omeprazole 20 MG Cap.CR PO SCH (07:58)
--- NOTE | 2017-12-02 09:16 | PCM.DCSUM1 ---
Discharge Summary - Hospital Course HPI Initial Comments: Patient presented to ER with low back pain with radiation down both legs. The radiation into the legs is defined as intermittent. She had been seen in the clinic 2 days ago and had a L spine series completed with negative findings. Pt had labs completed in the ER and was admitted to observation for sciatica/lower back pain. Day 2 of Hospital stay patient was taking muscle relaxers and pain medication and became delusional and having hallucinations. She was taken off those medications and was put on a low-dose anti-inflammatory Toradol along with Flexeril for pain management muscle spasms. Patient was tolerating the medication for the first 10 hours however the second dose of the Flexeril patient became very confused again last only a short period of time. Patient was taken off that medication. Patient was experiencing significant pain still and was placed on a low-dose hydrocodone for she's been on multiple times in the past. Patient was also exhibiting signs of urinary retention hesitancy frequency and foul-smelling urine. Did order a urine was culture. Patient was also ordered to have a CT scan for the significant left lower flank pain that would radiate down her leg just to rule out other infectious origins and etiologies. CT revealed a distended bladder and a possible hemorhagic cyst rupture. Labs completed showed WBC remains elevated but is trending down (WBC > 15 on admit >11). Did order a bladder scan on the patient showed greater than 1000mls-ordered a catheter to be placed. Throughout the night last night patient tolerated the pain medication however she wake up intermittently with severe pain in the lower extremities. And she is not tolerating the medication regimen that she is been provided. This morning family is at the bedside requesting an MRI for further rule out of lower back injuries. Currently we do not have MRI options until Monday and outpatient setting. Contact was made with [facility] Dr. Rueda who has agreed to admit this patient in acute care for further rule out and MRI imaging and pain management. Patient will be transferred later this afternoon for beds are tight [facility] and [facility]. Pt. has severe spinal arthritis, osteopenia, and spinal stenosis. - Discharge Data Discharge Date: 12/02/17 Discharge Disposition: Home, Self-Care 01 Condition: Good - Patient Summary/Data Consults: Consultations 11/30/17 08:48 PT Evaluation and Treatment [CONS] Routine 11/30/17 08:49 Consult to [employer] [CONS] Routine OT Evaluation and Treatment [CONS] Routine - Discharge Plan Home Medications: Home Meds Aspirin/Dipyridamole [Aggrenox 200-25 MG] 1 cap PO BID 09/26/14 [History] Calcium Carbonate/Vitamin D3 [Calcium 500-Vit D3 400 Tablet] 1 each PO BID 09/26 [History] Ferrous Sulfate 325 mg PO BID 09/26/14 [History] Furosemide [Lasix] 20 mg PO DAILY 09/26/14 [History] Metoprolol Succinate [Toprol XL] 75 mg PO DAILY 09/26/14 [History] Simvastatin 40 mg PO BEDTIME 09/26/14 [History] Albuterol [Proventil HFA] 2 puff INH Q4H PRN 11/07/14 [History] ALPRAZolam [Xanax] 0.25 mg PO TID PRN 03/06/17 [History] Aspirin [Ecotrin] 325 mg PO DAILY 03/06/17 [History] Cholecalciferol (Vitamin D3) [Vitamin D3] 1,000 unit PO DAILY 03/06/17 [History] Gabapentin [Neurontin] 100 mg PO DAILY 03/06/17 [History] Gabapentin [Neurontin] 300 mg PO BEDTIME 03/06/17 [History] Loperamide [Imodium] 1 - 2 tab PO DAILY PRN 03/06/17 [History] Maxivision 2 tab PO BID 03/06/17 [History] Omeprazole Magnesium [Prilosec Otc] 20 mg PO DAILY 03/06/17 [History] Sertraline [Zoloft] 50 mg PO BEDTIME 03/06/17 [History] Vitamin B Complex [Super B-50 Complex] 1 tab PO DAILY 03/06/17 [History] tiZANidine HCl [Tizanidine HCl] 2 mg PO TID PRN 03/06/17 [History] Cyanocobalamin (Vitamin B12) [Vitamin B12] 1,000 mcg PO DAILY 08/02/17 [History] Acetaminophen [Tylenol] 650 mg PO Q4H PRN 11/30/17 [History] Docusate Sodium 100 - 200 mg PO BID PRN 11/30/17 [History] Levothyroxine 175 mcg PO DAILY 11/30/17 [History] guaiFENesin [Robitussin] 100 mg PO Q4H PRN 11/30/17 [History] predniSONE [Prednisone] 7.5 mg PO DAILY 11/30/17 [History] Forms: Interfacility Transfer EMTALA Referrals: Marychuy Hernandez MD [Primary Care Provider] - - Discharge Summary/Plan Comment DC Time >30 min.: Yes (care spent coordinating care, talking with pt and familty and social work ) - General Info Admission Dx/Problem (Free Text: Pt. presented to ER yesterday with low back pain with radiation down both legs. The radiation into the legs is intermittent. Denies any fever or chills. No urinary incontinence or retention. She states that she was seen in the clinic two days ago and had an L spine series. These images were tracked down, and the radiologist did not note any acute fracture or other pathology. Pt. has severe spinal arthritis, osteopenia, and spinal stenosis. These chronic medical issues have been problematic in the past. Pt. does see rheumatology and is chronicially on steroid. Pt. mother and pt. do not wish for pt. to take any narcotic pain medication, and her kidney function doesnt allow her to take NSAIDS. Subjective Update: Nursing contacted provider on-call stating the patient is seen things in the ceiling and the ceiling is going to fall she is grabbing and pulling at things. - Review of Systems General: Reports: Weakness HEENT: Reports: No Symptoms Pulmonary: Reports: No Symptoms Cardiovascular: Reports: No Symptoms Gastrointestinal: Reports: No Symptoms Musculoskeletal: Reports: Back Pain, Leg Pain Skin: Reports: No Symptoms Neurological: Reports: No Symptoms Psychiatric: Reports: No Symptoms - Patient Data Vitals - Most Recent: Last Vital Signs Temp 36.4 C 12/02/17 06:00 Pulse 91 12/02/17 07:57 Resp 18 12/02/17 06:00 BP 146/76 H 12/02/17 07:57 Pulse Ox 95 12/02/17 06:00 Weight - Most Recent: 77.746 kg I&O - Last 24 hours: Intake & Output 12/01/17 12/02/17 12/02/17 22:59 06:59 14:59 Intake Total 120 840 90 Output Total 900 1950 Balance -780 -1110 90 Lab Results - Last 24 hrs: Laboratory Results - last 24 hr 05/06/1012/01/17 12/01/17 Range/Units 11:36 11:36 14:00 WBC 11.4 H (4.0-10.0) x10^3/uL RBC 3.29 L (4.00-5.50) x10^6/uL Hgb 11.6 L (12.0-16.0) g/dL Hct 36.8 (33.0-47.0) % MCV 111.9 H (78.0-93.0) fL MCH 35.3 H (26.0-32.0) pg MCHC 31.5 L (32.0-36.0) g/dL RDW Coeff of Kimber 12.1 (10.0-15.0) % Plt Count 183 (130-400) x10^3/uL Neut % (Auto) 88.0 H (50.0-80.0) % Lymph % (Auto) 5.1 L (25.0-50.0) % [place] % (Auto) 6.2 (2.0-11.0) % Eos % (Auto) 0.5 (0.0-4.0) % Baso % (Auto) 0.2 (0.2-1.2) % Sodium 137 (136-145) mmol/L Potassium 5.5 H (3.5-5.1) mmol/L Chloride 100 (98-107) mmol/L Carbon Dioxide 26 (21-32) mmol/L Anion Gap 16.5 (10-20) mmol/L BUN 38 H (7-18) mg/dL Creatinine 1.4 H (0.55-1.02) mg/dL Est Cr Clr Drug Dosing 23.42 mL/min Estimated GFR (MDRD) 36 Glucose 121 H (74-106) mg/dL Calcium 9.0 (8.5-10.1) mg/dL Corrected Calcium 9.48 (8.5-10.1) mg/dL Total Bilirubin 0.5 (0.2-1.0) mg/dL AST 26 (15-37) U/L ALT 20 (14-59) U/L Alkaline Phosphatase 68 (46-116) U/L Total Protein 7.4 (6.4-8.2) g/dL Albumin 3.4 (3.4-5.0) g/dL Globulin 4.0 Albumin/Globulin Ratio 0.85 Urine Color Yellow (YELLOW) Urine Appearance Clear (CLEAR) Urine pH 5.0 (5.0-8.0) Ur Specific [place]aur 1.010 Urine Protein Negative (NEGATIVE) mg/dL Urine Glucose (UA) Negative (NEGATIVE) mg/dL Urine Ketones Negative (NEGATIVE) mg/dL Urine Occult Blood Trace-intact H (NEGATIVE) Urine Nitrite Negative (NEGATIVE) Urine Bilirubin Negative (NEGATIVE) Urine Urobilinogen 0.2 (0.2) EU/dL Ur Leukocyte Esterase Trace H (NEGATIVE) Urine RBC 0-5 (NOT SEEN) /HPF Urine WBC 0-5 (NOT SEEN) /HPF Ur Squamous Epith Cells Few H (NEGATIVE) /HPF Urine Bacteria Rare (NEGATIVE) /HPF Urine Mucus Few H (NEGATIVE) /LPF Med Orders - Current: Current Medications Hydrocodone Bitart/Acetaminophen (Nash 325-5 Mg) 1 tab PO Q4H PRN PRN Reason: Pain Last Admin: 12/02/17 04:19 Dose: 1 tab Aspirin (Ecotrin) 325 mg PO DAILY [facility] Last Admin: 12/02/17 07:55 Dose: 325 mg Calcium Carbonate (Calcium Carbonate/Vitamin D 1250 Mg-200 Unit) 1 tab PO BID [facility] Last Admin: 12/02/17 07:55 Dose: 1 tab Cholecalciferol (Vitamin D3) 1,000 units PO DAILY [facility] Last Admin: 12/02/17 07:55 Dose: 1,000 units Cyanocobalamin (Vitamin B12) 1,000 mcg PO DAILY [facility] Last Admin: 12/02/17 07:55 Dose: 1,000 mcg Dipyridamole/Aspirin (Aggrenox 200-25 Mg) 1 cap PO BID [facility] Last Admin: 12/02/17 07:56 Dose: 1 cap Docusate Sodium (Colace) 100 - 200 mg PO BID PRN PRN Reason: Constipation Ferrous Sulfate (Ferrous Sulfate) 325 mg PO BIDMEALS [facility] Last Admin: 12/02/17 07:55 Dose: 325 mg Furosemide (Lasix) 20 mg PO DAILY [facility] Last Admin: 12/02/17 07:57 Dose: 20 mg Gabapentin (Neurontin) 100 mg PO DAILY [facility] Last Admin: 12/02/17 07:56 Dose: 100 mg Gabapentin (Neurontin) 300 mg PO BEDTIME [facility] Last Admin: 05/11/18 20:01 Dose: 300 mg Ketorolac Tromethamine (Toradol) 15 mg IVPUSH Q6H [facility] Last Admin: 12/02/17 06:13 Dose: 15 mg Levothyroxine Sodium (Levothyroxine) 175 mcg PO DAILY [facility] Last Admin: 12/02/17 07:56 Dose: 175 mcg Metoprolol Succinate (Toprol Xl) 75 mg PO DAILY [facility] Last Admin: 12/02/17 07:57 Dose: 75 mg Multivitamins/Minerals (Prosight) 2 tab PO BID [facility] Last Admin: 12/02/17 07:54 Dose: 2 tab Albuterol [Proventil (Hfa] (Own Supply)) 2 puff INH Q4H PRN PRN Reason: Shortness of Breath Prednisone 2.5mg ( (Own Supply)) 1 each PO DAILY [facility] Stop: 12/04/17 08:01 Last Admin: 12/02/17 07:58 Dose: 1 each Omeprazole (Omeprazole) 20 mg PO DAILY [facility] Last Admin: 12/02/17 07:58 Dose: 20 mg Prednisone (Prednisone) 5 mg PO DAILY [facility] Last Admin: 12/02/17 07:57 Dose: 5 mg Sertraline HCl (Zoloft) 50 mg PO BEDTIME [facility] Last Admin: 12/01/17 20:01 Dose: 50 mg Simvastatin (Zocor) 40 mg PO BEDTIME [facility] Last Admin: 12/01/17 20:01 Dose: 40 mg Sodium Chloride (Saline Flush) 10 ml FLUSH ASDIRECTED PRN PRN Reason: Keep Vein Open Trimethoprim/Sulfamethoxazole (Septra) 1 tab PO BID [facility] Stop: 12/03/17 20:01 Last Admin: 12/02/17 07:55 Dose: 1 tab Vitamin B Complex (Balanced B-50) 1 each PO DAILY [facility] Last Admin: 12/02/17 07:55 Dose: 1 each Discontinued Medications Acetaminophen (Tylenol) 650 mg PO Q4H PRN PRN Reason: Pain Last Admin: 12/01/17 18:47 Dose: 650 mg Hydrocodone Bitart/Acetaminophen (Nash 325-10 Mg) 1 tab PO Q4H PRN PRN Reason: Pain Last Admin: 12/01/17 08:33 Dose: 1 tab Hydrocodone Bitart/Acetaminophen (Acetaminophen/Hydrocodone 2.5-108/5) 5 ml PO Q4H PRN PRN Reason: Pain Alprazolam (Xanax) 0.25 mg PO TID PRN PRN Reason: Anxiety Cyclobenzaprine HCl (Flexeril) 5 mg PO TID PRN PRN Reason: severe pain Last Admin: 12/01/17 20:02 Dose: 5 mg Guaifenesin (Robitussin) 100 mg PO Q4H PRN PRN Reason: Congestion Hydromorphone HCl (Dilaudid) 1 mg IM ONETIME ONE Stop: 11/30/17 07:38 Last Admin: 11/30/17 07:47 Dose: 1 mg Sodium Chloride (Normal Saline) 500 mls @ 250 mls/hr IV ONETIME ONE Stop: 12/01/17 13:14 Last Admin: 12/01/17 11:32 Dose: 250 mls/hr Sodium Chloride (Normal Saline) 500 mls @ 175 mls/hr IV ASDIRECTED DELIA Stop: 12/01/17 18:00 Ketorolac Tromethamine (Toradol) 15 mg IVPUSH ONETIME ONE Stop: 12/01/17 11:15 Last Admin: 12/01/17 11:41 Dose: 15 mg Tizanidine HCl (Zanaflex) 2 mg PO TID PRN PRN Reason: Muscle Spasm Last Admin: 12/01/17 08:34 Dose: 2 mg - Exam General: Reports: Alert, Oriented HEENT: Reports: Pupils Equal, Pupils Reactive, EOMI, Mucous Membr. Moist/[place] Neck: Reports: Supple Lungs: Reports: Clear to Auscultation, Normal Respiratory Effort Cardiovascular: Reports: Regular Rate, Regular Rhythm Back Exam: Reports: Decreased Range of Motion, Muscle Spasm, Vertebral Tenderness Extremities: Normal Inspection, Leg Pain, Limited Range of Motion. No: Pedal Edema, Increased Warmth, Redness Skin: Reports: Warm, Dry, Intact, Ecchymosis Neurological: Reports: Normal Speech. Denies: Normal Gait Psy/Mental Status: Reports: Alert, Normal Affect, Anxious
[2017-12-02 10:04] VITALS: BP 181/61
[2017-12-02] MEDS ORDERED: Ondansetron 4 MG/2 ML SDV IVPUSH ONE (12:02)
== END 2017-12-02 13:00 | disposition home or self-care (01) ==
LOC: VM.ED 06:56 → VM.MS 08:18
PROVIDERS: ADMIT Physician Assistant; ATTEND Physician Assistant
DX: M54.40 Lumbago with sciatica, unspecified side (principal); M46.90 Unspecified inflammatory spondylopathy, site unspecified; M48.00 Spinal stenosis, site unspecified; M85.80 Other specified disorders of bone density and structure, unspecified site; R33.9 Retention of urine, unspecified; I10 Essential (primary) hypertension; F41.9 Anxiety disorder, unspecified; E03.9 Hypothyroidism, unspecified; K46.9 Unspecified abdominal hernia without obstruction or gangrene; Z79.82 Long term (current) use of aspirin; Z79.899 Other long term (current) drug therapy; Z86.73 Personal history of transient ischemic attack (TIA), and cerebral infarction without residual deficits
CPT/HCPCS: 36415; 51702; 74176; 80053; 81001; 85025; 85610; 86140; 87086; 96361; 96372; 96374; 96375; 96376; 97162-GP; 97165-GO; 99284; A9270-GY; G0378; J1170; J1885; J2405; J7040

== ENCOUNTER 2017-12-09 09:29 | Inpatient (IN) | payer MEDICARE, OTHER ==
[2017-12-09] MEDS ORDERED: Loperamide 2 MG Cap PO PRN (11:02)
[2017-12-09] MEDS ORDERED: ALPRAZolam 0.25 MG Tab PO PRN (11:02)
[2017-12-09] MEDS ORDERED: guaiFENesin 100 MG/5 ML Soln 10 ML UD Cup PO PRN (11:02)
[2017-12-09] MEDS: Acetaminophen/HYDROcodone 325-5 MG Tab PO PRN ×3 (12:09→20:08)
[2017-12-09] MEDS: Gabapentin 100 MG Cap PO SCH ×3 (12:11→20:11)
[2017-12-09] MEDS: amLODIPine 2.5 MG Tab PO SCH (12:12)
[2017-12-09] MEDS: Heparin Sodium 5,000 Units/ML Vial SUBCUT SCH ×2 (12:15→18:44)
[2017-12-09] MEDS ORDERED: Albuterol 0.083% 2.5 MG/3 ML Neb Soln INH PRN (15:00)
--- NOTE | 2017-12-09 15:02 | HP ---
CHIEF COMPLAINT: Deconditioning with intractable back pain. HISTORY OF PRESENT ILLNESS: The patient is an 87-year-old female who is transferred back from [place] after having been there from 12/02/2017 to 12/09/2017. The patient was found to have an acute S1-S2 compression fracture as well as radicular low back pain with herniated disk at L4-L5. She did receive an epidural steroid injection, which did help some pain. She was felt not to be a surgical candidate or not need vertebroplasty at the present time. Her pain was improving, but she was having a difficult time moving around. She did work with therapies some days, but it was not offered other days. The patient because of her use of her narcotics was having problems with urinary retention, so Pabon catheter had to be replaced prior to her discharge here. The patient also had been restarted on Neurontin that she had been on previously. The patient had been seen by Dr. Saravia for Interventional Radiology. The patient is also on prednisone because of her polymyalgia rheumatica. It was noted that her Lasix had been stopped because of problems of frequency with urination, but her blood pressure has also been high. It was unclear if this was related to her pain versus not being well controlled. To note, the patient does have chronic kidney disease. She used to be on enalapril in the past. I believe this was stopped because of problems with worsening of renal function. The patient's family had wanted her to come to swing bed as their intent is that she can return to be at assisted living with her and to not go to care home. Her code level status was do not resuscitate, do not intubate. MEDICATIONS: Her medications at the time of admission are calcium with vitamin D 500/400 one pill b.i.d.; simvastatin 40 mg 1 pill at bedtime; metoprolol-XL 25 mg strength pill, she takes 75 mg daily; ferrous sulfate 325 one pill twice a day; Aggrenox 200/25 one pill twice a day; albuterol 2 puffs q.4 hours p.r.n.; vitamin D 1000 units 1 pill daily; tizanidine 2 mg 1 pill 3 times a day as needed; Neurontin 100 mg 1 pill at bedtime and Neurontin 200 mg 3 times a day; vitamin B complex 1 pill daily; MaxiVision 2 tablets b.i.d.; omeprazole 20 mg 1 pill daily; Xanax 0.25 mg 1 pill twice a day; Zoloft 50 mg 1 pill at bedtime; Imodium 1-2 tablets daily p.r.n.; vitamin B12 1000 mcg 1 pill daily; acetaminophen 325 two pills q.4 hours p.r.n.; levothyroxine 175 mcg 1 pill daily; docusate sodium 100 mg 1-2 pills twice a day as needed; prednisone 5 mg 1 pill daily; Robitussin 100 mg/5 mL every 4 hours p.r.n. cough.; Lidoderm patch 700 mg patch topically placed twice daily; [place] 325/5 one pill every 4 hours p.r.n. ALLERGIES: Oxycodone causes hallucinations. PAST MEDICAL HISTORY: The patient has had hypothyroidism, hypertension, asthma. 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 PAST SURGICAL HISTORY: She has had knee replacements bilaterally, cholecystectomy, D and C, cataract surgery, aortic valve [facility] replaced porcine in 10/2009, CABG with AVR and MVR, total hip on the right in 2012. She had a colonoscopy on 06/02/2005. She has had shoulder arthroplasty on 08/10/2015 on the right that was revised. She has had a breast biopsy on the right, which was benign. Breast biopsy in the left 2003 was benign. Left knee replacement in about 1987 and 2004, right was replaced in 1992. Shoulder arthroplasty in 2016 on the left, which was revised. She has had middle trigger finger release as well as ring left finger release. FAMILY MEDICAL HISTORY: Not contributory. SOCIAL HISTORY: She is . She is Jewish. She lives with her . They live in assisted living. She has never smoked. She has never used alcohol. Daughter, Ferdinand, lives in town and is very closely involved with her family's health care. REVIEW OF SYSTEMS: The patient does feel very weak, difficulty turning. She does have pain in her lower back and numbness going down her legs. She has a Pabon catheter in. No coughing. No chest pain. No sore throat. No constipation or diarrhea. She does have bruising on her arms. No fever. Memory is good. Mood is good. No swelling on extremities. No headache. Vision is ok. No pollydypsia. No enlarged lymph glands. PHYSICAL EXAMINATION: VITAL SIGNS: Weight is 76.65 kg, temperature is 36.8, pulse 75, blood pressure is 176/53, respiratory rate is 20, saturations are 94%. SKIN: [place], warm, and dry. HEENT: Mucous membranes are slightly dry. Pupils are equal and reactive to light. HEART: Regular rate and rhythm with 2/6 systolic ejection murmur. LUNGS: Clear to auscultation. ABDOMEN: Soft and nontender. BACK: Has no erythema at the site of previous injections. It is slightly tender to palpation. She has pain with transferring in the bed. PELVIS: Nontender to palpation. LOWER EXTREMITIES: No edema. : Pabon catheter is in place and has clear yellow urine. IMPRESSION: 1. Intractable back pain secondary to sacral compression fractures. 2. Herniated disk at L3-L4 with radiculopathy. 3. Urinary tact infection secondary to pain control. 4. Hypertension, not controlled. 5. Anxiety disorder. 6. Asthma. 7. Osteoporosis. 8. Chronic kidney disease. 9. Hypercholesterolemia. 10.Vitamin D deficiency. PLAN: The patient is admitted to swing bed. She will receive rehab therapies with physical therapy and occupational therapy. We will work on pain control. She will be continued on heparin for DVT prophylaxis until she is more mobile. We will work on bladder training. She was placed on lidocaine patch as well as increased doses of gabapentin. We will start her on a low-dose amlodipine to help with her blood pressure and we will have to watch for signs of peripheral edema with this. We will check her lab work tomorrow. If the patient is not able to progress with therapies, she may need to look at alternative therapies of going to care home care. To note, her has been in declining health recently due to prostate cancer that he is being treated for. GM12/09/2017 11:26:37 MODL: 12/09/2017 14:09:13 /[id number] [facility]
[2017-12-09] MEDS ORDERED: Aspirin/Dipyridamole 200-25 MG Cap.ER PO SCH (20:00)
[2017-12-09] MEDS: Beta-Carotene (Vitamin A) w/Vitamin C & E plus Minerals Tab PO SCH (20:06)
[2017-12-09] MEDS: Calcium Carbonate/Vitamin D3 1250 MG-200 Unit Tab PO SCH (20:07)
[2017-12-09] MEDS: Simvastatin 40 MG Tab PO SCH (20:07)
[2017-12-09] MEDS: Sulfamethoxazole/Trimethoprim 400-80 MG Tab PO SCH (20:07)
[2017-12-09] MEDS: Sertraline 50 MG Tab PO SCH (20:07)
[2017-12-09] MEDS: Ferrous Sulfate 325 MG Tab PO SCH (20:07)
[2017-12-10] MEDS: Acetaminophen/HYDROcodone 325-5 MG Tab PO PRN ×6 (00:13→20:06)
[2017-12-10] MEDS: Heparin Sodium 5,000 Units/ML Vial SUBCUT SCH ×3 (03:37→18:46)
[2017-12-10] MEDS: Omeprazole 20 MG Cap.CR PO SCH (06:17)
[2017-12-10] MEDS: Lidocaine 5% 700 MG Patch TOP SCH (08:17)
[2017-12-10] MEDS: Ferrous Sulfate 325 MG Tab PO SCH ×2 (08:21→20:05)
[2017-12-10] MEDS: Vitamin B Complex Tab.ER PO SCH (08:21)
[2017-12-10] MEDS: Calcium Carbonate/Vitamin D3 1250 MG-200 Unit Tab PO SCH ×2 (08:21→20:05)
[2017-12-10] MEDS: Gabapentin 100 MG Cap PO SCH ×4 (08:21→20:05)
[2017-12-10] MEDS: predniSONE 5 MG Tab PO SCH (08:22)
[2017-12-10] MEDS: Cyanocobalamin (Vitamin B12) 1,000 MCG Tab PO SCH (08:22)
[2017-12-10] MEDS: Sulfamethoxazole/Trimethoprim 400-80 MG Tab PO SCH ×2 (08:22→20:05)
[2017-12-10] MEDS: amLODIPine 2.5 MG Tab PO SCH (08:22)
[2017-12-10] MEDS: Metoprolol Succinate 25 MG Tab.ER PO SCH (08:22)
[2017-12-10] MEDS: Cholecalciferol (Vitamin D3) 1,000 Unit Tab PO SCH (08:22)
[2017-12-10] MEDS: Beta-Carotene (Vitamin A) w/Vitamin C & E plus Minerals Tab PO SCH ×2 (08:22→20:06)
[2017-12-10] MEDS: Sertraline 50 MG Tab PO SCH (20:05)
[2017-12-10] MEDS: Simvastatin 40 MG Tab PO SCH (20:05)
[2017-12-11] MEDS: Acetaminophen/HYDROcodone 325-5 MG Tab PO PRN ×5 (00:09→17:03)
[2017-12-11] MEDS: Heparin Sodium 5,000 Units/ML Vial SUBCUT SCH ×3 (02:58→18:10)
[2017-12-11] MEDS: Omeprazole 20 MG Cap.CR PO SCH (06:21)
[2017-12-11] MEDS: Lidocaine 5% 700 MG Patch TOP SCH (08:08)
[2017-12-11] MEDS: Sulfamethoxazole/Trimethoprim 400-80 MG Tab PO SCH ×2 (08:09→20:27)
[2017-12-11] MEDS: Vitamin B Complex Tab.ER PO SCH (08:09)
[2017-12-11] MEDS: Metoprolol Succinate 25 MG Tab.ER PO SCH (08:09)
[2017-12-11] MEDS: Cyanocobalamin (Vitamin B12) 1,000 MCG Tab PO SCH (08:09)
[2017-12-11] MEDS: Beta-Carotene (Vitamin A) w/Vitamin C & E plus Minerals Tab PO SCH ×2 (08:09→20:26)
[2017-12-11] MEDS: Cholecalciferol (Vitamin D3) 1,000 Unit Tab PO SCH (08:09)
[2017-12-11] MEDS: amLODIPine 2.5 MG Tab PO SCH (08:10)
[2017-12-11] MEDS: Gabapentin 100 MG Cap PO SCH ×4 (08:10→20:28)
[2017-12-11] MEDS: Ferrous Sulfate 325 MG Tab PO SCH ×2 (08:10→20:28)
[2017-12-11] MEDS: predniSONE 5 MG Tab PO SCH (08:10)
[2017-12-11] MEDS: Calcium Carbonate/Vitamin D3 1250 MG-200 Unit Tab PO SCH ×2 (08:10→20:27)
--- NOTE | 2017-12-11 08:34 | PN ---
Progress Note for EL FRANCOIS Date: 12/11/2017 Room #: VM.217 SUBJECTIVE: The patient is feeling little bit stronger since coming here. She is waiting to have physical therapy and occupational therapy assess her. She does have an indwelling catheter. Her Pabon catheter when she arrived, it was checked. She does have a bladder infection and was started on antibiotics for this. Otherwise, her bowels have been working. OBJECTIVE: Vital Signs: Her temperature is 36.7, pulse 79, blood pressure is 151/67, saturations are 94%, respiratory rate 20. General: The patient has some bruises on her arms. She is alert, pleasant to visit with. She is lying on the side in her bed. Heart: Regular rate and rhythm. 2/6 systolic ejection murmur. Lungs: Clear to auscultation. Abdomen: Bowel sounds present and soft. Genitourinary: Urine looks clear yellow. LABORATORY DATA: Pertinent laboratory work that was done on 12/10/2017 showed a hemoglobin of 11.7, white blood cell count 9.4, 237 platelets. Sodium 137, potassium 5.2, creatinine 1.2. GFR 42, glucose 94, alkaline phosphatase 162, AST 32, ALT 43, albumin 3.2. Urinalysis has 10 to 20 white blood cells, few epis, moderate bacteria. Gram-negative rods are growing. IMPRESSION: 1. Severe back pain secondary to sacral compression fractures as well as herniated disk. 2. Urinary tract infection, gram-negative bacteria. 3. Hypertension, improving. 4. Anxiety disorder, improving. 5. Asthma, stable. 6. Osteoporosis. 7. Chronic kidney disease. 8. Hypercholesterolemia. 9. Polymyalgia rheumatica. PLAN: The patient had been started on amlodipine to help with blood pressure control as well as not having a diuretic effect for her or worsening renal function. She was started on Bactrim Single Strength for her bladder infection. We are still awaiting the urine sensitivities. She will be seeing physical therapy and occupational therapy today. Currently, she is on Lidoderm patches as well as gabapentin for pain control, and she has chronic prednisone for her polymyalgia rheumatica. We hope to begin bladder training today to be able to get her Pabon catheter removed. GM12/11/2017 08:13:39 MODL: 12/11/2017 08:29:44 /[id number]
[2017-12-11] MEDS: Simvastatin 40 MG Tab PO SCH (20:27)
[2017-12-11] MEDS: Sertraline 50 MG Tab PO SCH (20:27)
[2017-12-11] MEDS: Acetaminophen 325 MG Tab PO PRN (20:35)
[2017-12-12] MEDS: Acetaminophen/HYDROcodone 325-5 MG Tab PO PRN ×5 (00:31→22:07)
[2017-12-12] MEDS: Heparin Sodium 5,000 Units/ML Vial SUBCUT SCH ×3 (03:15→18:10)
[2017-12-12] MEDS: Omeprazole 20 MG Cap.CR PO SCH (06:02)
[2017-12-12] MEDS: Lidocaine 5% 700 MG Patch TOP SCH (07:49)
[2017-12-12] MEDS: Calcium Carbonate/Vitamin D3 1250 MG-200 Unit Tab PO SCH ×2 (07:49→20:21)
[2017-12-12] MEDS: Ferrous Sulfate 325 MG Tab PO SCH ×2 (07:49→20:21)
[2017-12-12] MEDS: Vitamin B Complex Tab.ER PO SCH (07:49)
[2017-12-12] MEDS: Gabapentin 100 MG Cap PO SCH ×4 (07:50→20:21)
[2017-12-12] MEDS: amLODIPine 2.5 MG Tab PO SCH (07:50)
[2017-12-12] MEDS: predniSONE 5 MG Tab PO SCH (07:50)
[2017-12-12] MEDS: Sulfamethoxazole/Trimethoprim 400-80 MG Tab PO SCH (07:50)
[2017-12-12] MEDS: Beta-Carotene (Vitamin A) w/Vitamin C & E plus Minerals Tab PO SCH ×2 (07:50→20:20)
[2017-12-12] MEDS: Metoprolol Succinate 25 MG Tab.ER PO SCH (07:50)
[2017-12-12] MEDS: Cyanocobalamin (Vitamin B12) 1,000 MCG Tab PO SCH (07:51)
[2017-12-12] MEDS: Cholecalciferol (Vitamin D3) 1,000 Unit Tab PO SCH (07:51)
[2017-12-12] MEDS ORDERED: Lidocaine 5% 700 MG Patch TOP PRN (08:14)
[2017-12-12] MEDS: Acetaminophen 325 MG Tab PO PRN (08:27)
--- NOTE | 2017-12-12 09:26 | PN ---
Progress Note for EL FRANCOIS Date: 12/12/2017 Room #: VM.217 SUBJECTIVE: The patient's Pabon was inadvertently removed yesterday as she had very little residual of 500 mL; however, since then, she has not been able to void on her own. Family was somewhat unhappy as that was not her previous voiding program she had been on. Pabon did have to be replaced last evening, showing urine has been cloudy. The patient's daughters know that the patient seems to be more shaky when moving around. She is wanting a B12 level could be checked. The patient has had previous B12 deficiencies in the past. Also, the patient is on thyroid medication. The patient's bowels have been working better. The patient was seen yesterday by PT and OT. OBJECTIVE: Vital Signs: Her temperature is 36.6, pulse 74, blood pressure is 138/52, sats are 94% on room air, and respiratory rate 18. Skin: Her skin is pink warm and dry. Heart: Regular rate and rhythm without murmurs or bruits. Lungs: Clear to auscultation. Genitourinary: Her urine is noted to be cloudy in her bag. Neurologic: No tremors are noted when the patient was sitting. Microbiology of bladder infection shows gram-negative rods. Culture and sensitivity are still pending. IMPRESSION: 1. Deconditioning due to back pain. 2. Compression fracture of sacrum. 3. Herniated lumbar disk. 4. Urinary tract infection with gram-negative bacteria. 5. Tremulousness secondary to deconditioning. 6. Hypertension, improving. 7. Anxiety. 8. Chronic asthma. 9. Urinary retention. 10.Polymyalgia rheumatica. 11.Hypothyroidism. PLAN: The patient does have lab work checked tomorrow. Today, we will leave the Pabon in for 48 hours per family request. We will do clamping every 2 hours today and then every 4 hours tomorrow, and if able to tolerate, we will remove and hopefully get her to be able to void on her own. She is encouraged to continue to push fluids, work with strengthening. We will see what her lab work comes back tomorrow. Family is interested in knowing what type of program she had been on about a year ago to help with her bladder, and stated they are more than welcome to share that with us. GM12/12/2017 08:23:33 MODL: 12/12/2017 09:02:43 /[id number]
[2017-12-12] MEDS: Ciprofloxacin 500 MG Tab PO SCH ×2 (11:16→20:21)
[2017-12-12] MEDS: Simvastatin 40 MG Tab PO SCH (20:21)
[2017-12-12] MEDS: Sertraline 50 MG Tab PO SCH (20:21)
[2017-12-13] MEDS: Heparin Sodium 5,000 Units/ML Vial SUBCUT SCH ×3 (02:35→18:17)
[2017-12-13] MEDS: Acetaminophen/HYDROcodone 325-5 MG Tab PO PRN ×6 (02:36→22:15)
[2017-12-13] MEDS: Omeprazole 20 MG Cap.CR PO SCH (06:34)
[2017-12-13] MEDS: Acetaminophen 325 MG Tab PO PRN (08:38)
[2017-12-13] MEDS: Cyanocobalamin (Vitamin B12) 1,000 MCG Tab PO SCH (08:38)
[2017-12-13] MEDS: Beta-Carotene (Vitamin A) w/Vitamin C & E plus Minerals Tab PO SCH ×2 (08:38→21:04)
[2017-12-13] MEDS: Cholecalciferol (Vitamin D3) 1,000 Unit Tab PO SCH (08:38)
[2017-12-13] MEDS: amLODIPine 2.5 MG Tab PO SCH (08:38)
[2017-12-13] MEDS: predniSONE 5 MG Tab PO SCH (08:38)
[2017-12-13] MEDS: Ciprofloxacin 500 MG Tab PO SCH ×2 (08:38→21:05)
[2017-12-13] MEDS: Vitamin B Complex Tab.ER PO SCH (08:38)
[2017-12-13] MEDS: Metoprolol Succinate 25 MG Tab.ER PO SCH (08:38)
[2017-12-13] MEDS: Calcium Carbonate/Vitamin D3 1250 MG-200 Unit Tab PO SCH ×2 (08:39→21:04)
[2017-12-13] MEDS: Ferrous Sulfate 325 MG Tab PO SCH ×2 (08:39→21:04)
[2017-12-13] MEDS: Gabapentin 100 MG Cap PO SCH ×4 (08:39→21:04)
[2017-12-13] MEDS ORDERED: Calcium Carbonate 750 MG Tab.Chew PO ONE (20:39)
--- NOTE | 2017-12-13 20:42 | PCM.SN ---
- Free Text/Narrative Note: Called by nursing for order for Tums at request of patient's daughter. Patient had some acid reflux that led to vomiting this evening. Given history of CAD, an EKG was done by nursing and negative for acute changes per computer read. Nursing states that the patient is denying any chest pain or shortness of breath. She is already feeling better at the time of the phone call. BP is up slightly but vitals otherwise stable. Labs from the am reviewed. Order placed for Tums. Nursing to call me 10 minutes after this is given with an update and I will come in and see the patient if symptoms are not resolved.
[2017-12-13] MEDS: Sertraline 50 MG Tab PO SCH (21:04)
[2017-12-13] MEDS: Docusate Sodium 100 MG Cap PO PRN (21:04)
[2017-12-13] MEDS: Simvastatin 40 MG Tab PO SCH (21:06)
--- NOTE | 2017-12-13 22:03 | PCM.SN ---
- Free Text/Narrative Note: Called to check on patient. She had endorsed some burning chest discomfort after vomiting but no other chest pain. Tums were given with complete resolution of symptoms. She is now feeling back to normal. Nursing to call for any concerns overnight.
[2017-12-14] MEDS: Acetaminophen/HYDROcodone 325-5 MG Tab PO PRN ×5 (02:33→20:13)
[2017-12-14] MEDS: Heparin Sodium 5,000 Units/ML Vial SUBCUT SCH ×3 (02:34→18:09)
[2017-12-14] MEDS: Omeprazole 20 MG Cap.CR PO SCH (06:20)
[2017-12-14] MEDS: Vitamin B Complex Tab.ER PO SCH (08:29)
[2017-12-14] MEDS: Ciprofloxacin 500 MG Tab PO SCH ×2 (08:30→20:13)
[2017-12-14] MEDS: Ferrous Sulfate 325 MG Tab PO SCH ×2 (08:30→20:13)
[2017-12-14] MEDS: Calcium Carbonate/Vitamin D3 1250 MG-200 Unit Tab PO SCH ×2 (08:30→20:14)
[2017-12-14] MEDS: amLODIPine 2.5 MG Tab PO SCH (08:31)
[2017-12-14] MEDS: predniSONE 5 MG Tab PO SCH (08:31)
[2017-12-14] MEDS: Metoprolol Succinate 25 MG Tab.ER PO SCH (08:32)
[2017-12-14] MEDS: Beta-Carotene (Vitamin A) w/Vitamin C & E plus Minerals Tab PO SCH ×2 (08:32→20:11)
[2017-12-14] MEDS: Cyanocobalamin (Vitamin B12) 1,000 MCG Tab PO SCH (08:33)
[2017-12-14] MEDS: Cholecalciferol (Vitamin D3) 1,000 Unit Tab PO SCH (08:33)
[2017-12-14] MEDS: Docusate Sodium 100 MG Cap PO PRN (08:34)
[2017-12-14] MEDS: Acetaminophen 325 MG Tab PO PRN (08:34)
[2017-12-14] MEDS: tiZANidine 4 MG Tab PO PRN ×3 (08:35→20:12)
[2017-12-14] MEDS: Gabapentin 300 MG Cap PO SCH ×3 (08:45→18:09)
[2017-12-14] MEDS: Gabapentin 100 MG Cap PO SCH ×2 (08:45→20:14)
[2017-12-14] MEDS: Sertraline 50 MG Tab PO SCH (20:12)
[2017-12-14] MEDS: Simvastatin 40 MG Tab PO SCH (20:13)
[2017-12-15] MEDS: Acetaminophen/HYDROcodone 325-5 MG Tab PO PRN ×5 (00:31→21:26)
[2017-12-15] MEDS: Heparin Sodium 5,000 Units/ML Vial SUBCUT SCH ×3 (03:19→18:47)
[2017-12-15] MEDS: Omeprazole 20 MG Cap.CR PO SCH (06:06)
[2017-12-15] MEDS ORDERED: Polyethylene Glycol 3350 Powder 17 GM Packet PO PRN (08:26)
[2017-12-15] MEDS: Aspirin/Dipyridamole 200-25 MG Cap.ER PO SCH ×2 (08:50→21:28)
[2017-12-15] MEDS: Calcium Carbonate/Vitamin D3 1250 MG-200 Unit Tab PO SCH ×2 (08:50→21:28)
[2017-12-15] MEDS: Vitamin B Complex Tab.ER PO SCH (08:50)
[2017-12-15] MEDS: Ciprofloxacin 500 MG Tab PO SCH ×2 (08:50→21:26)
[2017-12-15] MEDS: Gabapentin 300 MG Cap PO SCH ×3 (08:51→17:50)
[2017-12-15] MEDS: Beta-Carotene (Vitamin A) w/Vitamin C & E plus Minerals Tab PO SCH ×2 (08:51→21:26)
[2017-12-15] MEDS: amLODIPine 2.5 MG Tab PO SCH (08:51)
[2017-12-15] MEDS: predniSONE 5 MG Tab PO SCH (08:51)
[2017-12-15] MEDS: Ferrous Sulfate 325 MG Tab PO SCH ×2 (08:51→21:28)
[2017-12-15] MEDS: Cyanocobalamin (Vitamin B12) 1,000 MCG Tab PO SCH (08:52)
[2017-12-15] MEDS: tiZANidine 4 MG Tab PO PRN ×2 (08:52→14:05)
[2017-12-15] MEDS: Cholecalciferol (Vitamin D3) 1,000 Unit Tab PO SCH (08:52)
[2017-12-15] MEDS: Metoprolol Succinate 25 MG Tab.ER PO SCH (08:52)
--- NOTE | 2017-12-15 08:56 | PN ---
Progress Note for EL FRANCOIS Date: 12/15/2017 Room #: VM.217 SUBJECTIVE: The patient has been having a problem with her bladder resuming normal function. We have been doing bladder training. Catheter was removed yesterday. She was having some urinary residuals. She did void, but then also had more residual left, but her bladder feels better today. It has been noted that she has had to have Colace on a fairly regular basis. She does go, but apparently it has been more firmer. Her pain is better today, but she is lying down. She has not moved. When she does get up to move, she does have a lot of lower back pain. She has not been having pain of her shoulders from her polymyalgia rheumatica. She is not having coughing or shortness of breath. OBJECTIVE: Vital Signs: Her temperature is 36.7, pulse is 86, blood pressure is 101/74, saturations are 92% on room air, respiratory rate 18. Skin: She has healing bruises on her forearm. Heart: Regular rate and rhythm with 1/6 systolic ejection murmur. Lungs: Clear to auscultation. Abdomen: Bowel sounds present. Abdomen is soft. Extremities: No edema. Neurologic: She is alert and pleasant to visit with. LABORATORY DATA: Her lab the other day did show Pseudomonas UTI. IMPRESSION: 1. Deconditioning post intractable back pain with sacral insufficiency fractures. 2. Herniated discs. 3. Pseudomonas urinary tract infection. 4. Urinary retention. 5. Asthma. 6. Polymyalgia rheumatica. PLAN: We will place the patient on scheduled dose of stool softener since this helps encourages her bladder to work better and continue to work with therapies to get stronger with walking around. Her bladder will continue to be scanned every 8 hours and Pabon catheter p.r.n. if there is residual. As we want to keep the catheter out if at all possible, because of her bladder infection that is present and/or she may need consult with Urology if it does not ultimately improve and we will recheck lab work on patient on 12/19/2017. GM12/15/2017 08:30:03 MODL: 12/15/2017 08:50:40 /[id number]
[2017-12-15] MEDS: Docusate Sodium 100 MG Cap PO SCH ×2 (09:01→21:28)
[2017-12-15] MEDS: Sertraline 50 MG Tab PO SCH (21:26)
[2017-12-15] MEDS: Simvastatin 40 MG Tab PO SCH (21:27)
[2017-12-15] MEDS: Gabapentin 100 MG Cap PO SCH (21:28)
[2017-12-16] MEDS: Heparin Sodium 5,000 Units/ML Vial SUBCUT SCH ×3 (03:39→18:24)
[2017-12-16] MEDS: Omeprazole 20 MG Cap.CR PO SCH (06:07)
[2017-12-16] MEDS: Acetaminophen/HYDROcodone 325-5 MG Tab PO PRN ×5 (06:10→22:48)
[2017-12-16] MEDS: Docusate Sodium 100 MG Cap PO SCH ×2 (08:04→20:00)
[2017-12-16] MEDS: Beta-Carotene (Vitamin A) w/Vitamin C & E plus Minerals Tab PO SCH ×2 (08:04→20:00)
[2017-12-16] MEDS: Aspirin/Dipyridamole 200-25 MG Cap.ER PO SCH ×2 (08:04→20:00)
[2017-12-16] MEDS: Cyanocobalamin (Vitamin B12) 1,000 MCG Tab PO SCH (08:04)
[2017-12-16] MEDS: Ciprofloxacin 500 MG Tab PO SCH ×2 (08:04→20:01)
[2017-12-16] MEDS: Vitamin B Complex Tab.ER PO SCH (08:04)
[2017-12-16] MEDS: Gabapentin 300 MG Cap PO SCH ×3 (08:04→18:24)
[2017-12-16] MEDS: Calcium Carbonate/Vitamin D3 1250 MG-200 Unit Tab PO SCH ×2 (08:04→20:01)
[2017-12-16] MEDS: Ferrous Sulfate 325 MG Tab PO SCH ×2 (08:05→20:01)
[2017-12-16] MEDS: amLODIPine 2.5 MG Tab PO SCH (08:05)
[2017-12-16] MEDS: Cholecalciferol (Vitamin D3) 1,000 Unit Tab PO SCH (08:05)
[2017-12-16] MEDS: predniSONE 5 MG Tab PO SCH (08:05)
[2017-12-16] MEDS: Metoprolol Succinate 25 MG Tab.ER PO SCH (08:05)
[2017-12-16] MEDS: tiZANidine 4 MG Tab PO PRN (12:23)
[2017-12-16] MEDS: Acetaminophen 325 MG Tab PO PRN (12:23)
[2017-12-16] MEDS: Sertraline 50 MG Tab PO SCH (20:01)
[2017-12-16] MEDS: Gabapentin 100 MG Cap PO SCH (20:01)
[2017-12-16] MEDS: Simvastatin 40 MG Tab PO SCH (20:01)
[2017-12-17] MEDS: Heparin Sodium 5,000 Units/ML Vial SUBCUT SCH ×3 (03:25→18:01)
[2017-12-17] MEDS: Acetaminophen/HYDROcodone 325-5 MG Tab PO PRN ×6 (03:28→23:24)
[2017-12-17] MEDS: Omeprazole 20 MG Cap.CR PO SCH (06:10)
[2017-12-17] MEDS: Ciprofloxacin 500 MG Tab PO SCH ×2 (07:28→19:29)
[2017-12-17] MEDS: Beta-Carotene (Vitamin A) w/Vitamin C & E plus Minerals Tab PO SCH ×2 (07:28→19:28)
[2017-12-17] MEDS: Metoprolol Succinate 25 MG Tab.ER PO SCH (07:29)
[2017-12-17] MEDS: Docusate Sodium 100 MG Cap PO SCH ×2 (07:29→19:27)
[2017-12-17] MEDS: Aspirin/Dipyridamole 200-25 MG Cap.ER PO SCH ×2 (07:29→19:27)
[2017-12-17] MEDS: predniSONE 5 MG Tab PO SCH (07:29)
[2017-12-17] MEDS: Gabapentin 300 MG Cap PO SCH ×3 (07:29→18:01)
[2017-12-17] MEDS: Calcium Carbonate/Vitamin D3 1250 MG-200 Unit Tab PO SCH ×2 (07:29→19:28)
[2017-12-17] MEDS: amLODIPine 2.5 MG Tab PO SCH (07:29)
[2017-12-17] MEDS: Ferrous Sulfate 325 MG Tab PO SCH ×2 (07:29→19:29)
[2017-12-17] MEDS: Vitamin B Complex Tab.ER PO SCH (07:29)
[2017-12-17] MEDS: Cholecalciferol (Vitamin D3) 1,000 Unit Tab PO SCH (07:29)
[2017-12-17] MEDS: Cyanocobalamin (Vitamin B12) 1,000 MCG Tab PO SCH (07:30)
[2017-12-17] MEDS: tiZANidine 4 MG Tab PO PRN ×2 (08:52→19:28)
[2017-12-17] MEDS: Acetaminophen 325 MG Tab PO PRN (08:52)
[2017-12-17] MEDS: Simvastatin 40 MG Tab PO SCH (19:28)
[2017-12-17] MEDS: Gabapentin 100 MG Cap PO SCH (19:28)
[2017-12-17] MEDS: Sertraline 50 MG Tab PO SCH (19:29)
[2017-12-18] MEDS: Heparin Sodium 5,000 Units/ML Vial SUBCUT SCH ×3 (04:00→18:03)
[2017-12-18] MEDS: Acetaminophen/HYDROcodone 325-5 MG Tab PO PRN ×5 (04:00→22:50)
[2017-12-18] MEDS: Omeprazole 20 MG Cap.CR PO SCH (06:13)
[2017-12-18] MEDS: Gabapentin 300 MG Cap PO SCH ×3 (08:03→18:03)
[2017-12-18] MEDS: Cholecalciferol (Vitamin D3) 1,000 Unit Tab PO SCH (08:03)
[2017-12-18] MEDS: Ciprofloxacin 500 MG Tab PO SCH ×2 (08:03→20:11)
[2017-12-18] MEDS: Beta-Carotene (Vitamin A) w/Vitamin C & E plus Minerals Tab PO SCH ×2 (08:03→20:10)
[2017-12-18] MEDS: predniSONE 5 MG Tab PO SCH (08:04)
[2017-12-18] MEDS: Metoprolol Succinate 25 MG Tab.ER PO SCH (08:04)
[2017-12-18] MEDS: Calcium Carbonate/Vitamin D3 1250 MG-200 Unit Tab PO SCH ×2 (08:04→20:09)
[2017-12-18] MEDS: amLODIPine 2.5 MG Tab PO SCH (08:04)
[2017-12-18] MEDS: Vitamin B Complex Tab.ER PO SCH (08:04)
[2017-12-18] MEDS: Ferrous Sulfate 325 MG Tab PO SCH ×2 (08:04→20:11)
[2017-12-18] MEDS: Cyanocobalamin (Vitamin B12) 1,000 MCG Tab PO SCH (08:04)
[2017-12-18] MEDS: Aspirin/Dipyridamole 200-25 MG Cap.ER PO SCH ×2 (08:04→20:10)
[2017-12-18] MEDS: Docusate Sodium 100 MG Cap PO SCH ×2 (08:04→20:11)
[2017-12-18] MEDS: Acetaminophen 325 MG Tab PO PRN (10:17)
[2017-12-18] MEDS: Gabapentin 100 MG Cap PO SCH (20:09)
[2017-12-18] MEDS: Simvastatin 40 MG Tab PO SCH (20:09)
[2017-12-18] MEDS: Sertraline 50 MG Tab PO SCH (20:10)
[2017-12-19] MEDS: Acetaminophen 325 MG Tab PO PRN ×2 (00:45→10:26)
[2017-12-19] MEDS: tiZANidine 4 MG Tab PO PRN ×2 (00:45→10:27)
[2017-12-19] MEDS: Heparin Sodium 5,000 Units/ML Vial SUBCUT SCH ×3 (03:55→18:39)
[2017-12-19] MEDS: Acetaminophen/HYDROcodone 325-5 MG Tab PO PRN ×5 (03:56→22:50)
[2017-12-19] MEDS: Omeprazole 20 MG Cap.CR PO SCH (06:49)
[2017-12-19] MEDS: Calcium Carbonate/Vitamin D3 1250 MG-200 Unit Tab PO SCH ×2 (08:40→20:00)
[2017-12-19] MEDS: Beta-Carotene (Vitamin A) w/Vitamin C & E plus Minerals Tab PO SCH ×2 (08:40→19:59)
[2017-12-19] MEDS: Aspirin/Dipyridamole 200-25 MG Cap.ER PO SCH ×2 (08:40→20:00)
[2017-12-19] MEDS: predniSONE 5 MG Tab PO SCH (08:40)
[2017-12-19] MEDS: Ferrous Sulfate 325 MG Tab PO SCH ×2 (08:40→19:59)
[2017-12-19] MEDS: Gabapentin 300 MG Cap PO SCH ×3 (08:40→18:39)
[2017-12-19] MEDS: Cholecalciferol (Vitamin D3) 1,000 Unit Tab PO SCH (08:41)
[2017-12-19] MEDS: Ciprofloxacin 500 MG Tab PO SCH (08:41)
[2017-12-19] MEDS: Docusate Sodium 100 MG Cap PO SCH ×2 (08:41→19:59)
[2017-12-19] MEDS: Vitamin B Complex Tab.ER PO SCH (08:41)
[2017-12-19] MEDS: Cyanocobalamin (Vitamin B12) 1,000 MCG Tab PO SCH (08:41)
--- NOTE | 2017-12-19 09:41 | PN ---
Progress Note for EL FRANCOIS Date: 12/19/2017 Room #: VM.217 SUBJECTIVELY,: The patient's bladder still has not resumed control. She has very little output. She will actually leak more so she is going to the bathroom, but then when she gets on the toilet, she is unable to void. The patient's bowels have been working. She is having pain is going down her right sciatic area now. The patient is known to have from her MRI. Herniated disk that I believe at L3-L4. Otherwise, the patient's tremulousness is got a little bit better. She has been walking around. Sometimes it seems to get worse if she is asked about it. One daughter accompanies her today in her exam room. OBJECTIVE: Vital Signs: Her temperature is 36.3, pulse is 81, blood pressure is 148/80, respiratory rate is 20, and sats are 96% on room air. Skin: Guys, warm, and dry. Heart: Regular rate and rhythm. Lungs: Clear to auscultation. Abdomen: Soft. She is sitting in a chair. No tremulous is noted at rest. LABORATORY DATA: As noted that her hemoglobin is stable at 10.7. Sodium 133, potassium 4.4, creatinine 1.1, and GFR is 47. LFTs are normal other than alkaline phosphatase is 167. Albumin is 2.9. IMPRESSION: 1. Sacral compression fractures with intractable back pain. 2. Herniated disks. 3. Urinary retention. 4. Pseudomonas urinary tract infection. 5. Asthma. 6. Polymyalgia rheumatica. PLAN: We will reinsert her Pabon catheter. We will visit with Urology today as we had tried over at least 3 days with cathing, clamping as well as then trying to void. We have increased her stool softener. She is going daily. She still requires her same amount of narcotic use for her back pain. She is encouraged to try muscle relaxers. Physical Therapy is working with her back pain as well. To note, her blood pressure is still a little bit elevated, so we will increase her amlodipine to 5 mg. May need to consider an increase of her steroid medication. May also need to confer with her neurosurgeon as well. GM12/19/2017 08:45:06 MODL: 12/19/2017 09:18:53 /[id number]
[2017-12-19] MEDS: Metoprolol Succinate 25 MG Tab.ER PO SCH (10:24)
[2017-12-19] MEDS: amLODIPine 2.5 MG Tab PO SCH (11:48)
[2017-12-19] MEDS: amLODIPine 5 MG Tab PO SCH (11:54)
[2017-12-19] MEDS: Calcium Carbonate 750 MG Tab.Chew PO PRN (16:34)
[2017-12-19] MEDS: Sertraline 50 MG Tab PO SCH (19:59)
[2017-12-19] MEDS: Gabapentin 100 MG Cap PO SCH (19:59)
[2017-12-19] MEDS: Simvastatin 40 MG Tab PO SCH (20:00)
[2017-12-20] MEDS: Heparin Sodium 5,000 Units/ML Vial SUBCUT SCH ×3 (02:50→18:21)
[2017-12-20] MEDS: Acetaminophen/HYDROcodone 325-5 MG Tab PO PRN ×4 (02:51→20:36)
[2017-12-20] MEDS: Omeprazole 20 MG Cap.CR PO SCH (06:46)
[2017-12-20] MEDS: Metoprolol Succinate 25 MG Tab.ER PO SCH (08:30)
[2017-12-20] MEDS: Aspirin/Dipyridamole 200-25 MG Cap.ER PO SCH ×2 (08:30→20:34)
[2017-12-20] MEDS: predniSONE 10 MG Tab PO SCH (08:31)
[2017-12-20] MEDS: Cholecalciferol (Vitamin D3) 1,000 Unit Tab PO SCH (08:31)
[2017-12-20] MEDS: Cyanocobalamin (Vitamin B12) 1,000 MCG Tab PO SCH (08:31)
[2017-12-20] MEDS: Gabapentin 300 MG Cap PO SCH ×3 (08:31→18:22)
[2017-12-20] MEDS: Vitamin B Complex Tab.ER PO SCH (08:31)
[2017-12-20] MEDS: Beta-Carotene (Vitamin A) w/Vitamin C & E plus Minerals Tab PO SCH ×2 (08:31→20:36)
[2017-12-20] MEDS: amLODIPine 5 MG Tab PO SCH (08:31)
[2017-12-20] MEDS: Ferrous Sulfate 325 MG Tab PO SCH ×2 (08:31→18:22)
[2017-12-20] MEDS: Calcium Carbonate/Vitamin D3 1250 MG-200 Unit Tab PO SCH ×2 (08:31→20:34)
[2017-12-20] MEDS: Docusate Sodium 100 MG Cap PO SCH ×2 (08:32→20:36)
[2017-12-20] MEDS: tiZANidine 4 MG Tab PO PRN ×3 (10:02→20:35)
[2017-12-20] MEDS: Calcium Carbonate 750 MG Tab.Chew PO PRN (10:07)
[2017-12-20] MEDS: Simvastatin 40 MG Tab PO SCH (20:35)
[2017-12-20] MEDS: Gabapentin 100 MG Cap PO SCH (20:35)
[2017-12-20] MEDS: Sertraline 50 MG Tab PO SCH (20:37)
[2017-12-21] MEDS: Heparin Sodium 5,000 Units/ML Vial SUBCUT SCH ×3 (04:11→18:10)
[2017-12-21] MEDS: Omeprazole 20 MG Cap.CR PO SCH (06:15)
[2017-12-21] MEDS: tiZANidine 4 MG Tab PO PRN ×2 (06:56→19:55)
[2017-12-21] MEDS: Acetaminophen 325 MG Tab PO PRN ×2 (06:56→15:32)
[2017-12-21] MEDS: Aspirin/Dipyridamole 200-25 MG Cap.ER PO SCH ×2 (09:01→19:52)
[2017-12-21] MEDS: Vitamin B Complex Tab.ER PO SCH (09:01)
[2017-12-21] MEDS: Gabapentin 300 MG Cap PO SCH ×3 (09:02→18:10)
[2017-12-21] MEDS: Calcium Carbonate/Vitamin D3 1250 MG-200 Unit Tab PO SCH ×2 (09:02→19:54)
[2017-12-21] MEDS: predniSONE 10 MG Tab PO SCH (09:02)
[2017-12-21] MEDS: amLODIPine 5 MG Tab PO SCH (09:02)
[2017-12-21] MEDS: Cholecalciferol (Vitamin D3) 1,000 Unit Tab PO SCH (09:03)
[2017-12-21] MEDS: Cyanocobalamin (Vitamin B12) 1,000 MCG Tab PO SCH (09:03)
[2017-12-21] MEDS: Metoprolol Succinate 25 MG Tab.ER PO SCH (09:03)
[2017-12-21] MEDS: Docusate Sodium 100 MG Cap PO SCH ×2 (09:14→19:52)
[2017-12-21] MEDS: Beta-Carotene (Vitamin A) w/Vitamin C & E plus Minerals Tab PO SCH ×2 (09:56→19:54)
[2017-12-21] MEDS: Acetaminophen/HYDROcodone 325-5 MG Tab PO PRN ×2 (10:41→19:55)
[2017-12-21] MEDS: Ferrous Sulfate 325 MG Tab PO SCH ×2 (11:59→18:10)
[2017-12-21] MEDS: Simvastatin 20 MG Tab PO SCH (19:53)
[2017-12-21] MEDS: Sertraline 50 MG Tab PO SCH (19:53)
[2017-12-21] MEDS: Gabapentin 100 MG Cap PO SCH (19:54)
[2017-12-22] MEDS: Heparin Sodium 5,000 Units/ML Vial SUBCUT SCH ×3 (03:55→18:39)
[2017-12-22] MEDS: Omeprazole 20 MG Cap.CR PO SCH (06:46)
[2017-12-22] MEDS: predniSONE 10 MG Tab PO SCH (08:08)
[2017-12-22] MEDS: Cyanocobalamin (Vitamin B12) 1,000 MCG Tab PO SCH (08:08)
[2017-12-22] MEDS: Acetaminophen 325 MG Tab PO PRN (08:08)
[2017-12-22] MEDS: Vitamin B Complex Tab.ER PO SCH (08:08)
[2017-12-22] MEDS: amLODIPine 5 MG Tab PO SCH (08:09)
[2017-12-22] MEDS: Cholecalciferol (Vitamin D3) 1,000 Unit Tab PO SCH (08:09)
[2017-12-22] MEDS: Aspirin/Dipyridamole 200-25 MG Cap.ER PO SCH ×2 (08:09→20:07)
[2017-12-22] MEDS: Gabapentin 300 MG Cap PO SCH ×3 (08:09→18:39)
[2017-12-22] MEDS: Calcium Carbonate/Vitamin D3 1250 MG-200 Unit Tab PO SCH ×2 (08:09→20:07)
[2017-12-22] MEDS: Beta-Carotene (Vitamin A) w/Vitamin C & E plus Minerals Tab PO SCH ×2 (08:09→20:06)
[2017-12-22] MEDS: Docusate Sodium 100 MG Cap PO SCH ×2 (08:09→20:07)
[2017-12-22] MEDS: Metoprolol Succinate 25 MG Tab.ER PO SCH (08:09)
[2017-12-22] MEDS: tiZANidine 4 MG Tab PO PRN ×3 (08:10→20:07)
[2017-12-22] MEDS: Calcium Carbonate 750 MG Tab.Chew PO PRN (10:24)
[2017-12-22] MEDS: Acetaminophen/HYDROcodone 325-5 MG Tab PO PRN (11:41)
[2017-12-22] MEDS: Ferrous Sulfate 325 MG Tab PO SCH ×2 (11:41→18:39)
[2017-12-22] MEDS: Sertraline 50 MG Tab PO SCH (20:06)
[2017-12-22] MEDS: Gabapentin 100 MG Cap PO SCH (20:07)
[2017-12-22] MEDS: Simvastatin 20 MG Tab PO SCH (20:07)
[2017-12-23] MEDS: Acetaminophen 325 MG Tab PO PRN ×3 (00:14→19:32)
[2017-12-23] MEDS: Acetaminophen/HYDROcodone 325-5 MG Tab PO PRN (02:52)
[2017-12-23] MEDS: Heparin Sodium 5,000 Units/ML Vial SUBCUT SCH ×4 (02:52→18:01)
[2017-12-23] MEDS: Omeprazole 20 MG Cap.CR PO SCH (06:06)
[2017-12-23] MEDS: tiZANidine 4 MG Tab PO PRN ×3 (07:01→19:33)
[2017-12-23] MEDS: Metoprolol Succinate 25 MG Tab.ER PO SCH (08:13)
[2017-12-23] MEDS: amLODIPine 5 MG Tab PO SCH (08:13)
[2017-12-23] MEDS: Vitamin B Complex Tab.ER PO SCH (08:14)
[2017-12-23] MEDS: Cyanocobalamin (Vitamin B12) 1,000 MCG Tab PO SCH (08:14)
[2017-12-23] MEDS: predniSONE 10 MG Tab PO SCH (08:14)
[2017-12-23] MEDS: Gabapentin 300 MG Cap PO SCH ×3 (08:14→17:42)
[2017-12-23] MEDS: Beta-Carotene (Vitamin A) w/Vitamin C & E plus Minerals Tab PO SCH ×2 (08:14→19:32)
[2017-12-23] MEDS: Calcium Carbonate/Vitamin D3 1250 MG-200 Unit Tab PO SCH ×2 (08:14→19:32)
[2017-12-23] MEDS: Aspirin/Dipyridamole 200-25 MG Cap.ER PO SCH ×2 (08:14→19:32)
[2017-12-23] MEDS: Cholecalciferol (Vitamin D3) 1,000 Unit Tab PO SCH (08:14)
[2017-12-23] MEDS: Docusate Sodium 100 MG Cap PO SCH ×2 (08:14→19:32)
[2017-12-23] MEDS: Ferrous Sulfate 325 MG Tab PO SCH ×2 (12:05→17:42)
[2017-12-23] MEDS: Simvastatin 20 MG Tab PO SCH (19:32)
[2017-12-23] MEDS: Gabapentin 100 MG Cap PO SCH (19:32)
[2017-12-23] MEDS: Sertraline 50 MG Tab PO SCH (19:32)
[2017-12-24] MEDS: Acetaminophen 325 MG Tab PO PRN ×3 (01:27→14:32)
[2017-12-24] MEDS: tiZANidine 4 MG Tab PO PRN ×3 (01:29→20:34)
[2017-12-24] MEDS: Heparin Sodium 5,000 Units/ML Vial SUBCUT SCH ×4 (03:07→18:03)
[2017-12-24] MEDS: Acetaminophen/HYDROcodone 325-5 MG Tab PO PRN ×3 (04:52→20:33)
[2017-12-24] MEDS: Omeprazole 20 MG Cap.CR PO SCH (06:44)
[2017-12-24] MEDS: Cholecalciferol (Vitamin D3) 1,000 Unit Tab PO SCH (08:11)
[2017-12-24] MEDS: Metoprolol Succinate 25 MG Tab.ER PO SCH (08:11)
[2017-12-24] MEDS: predniSONE 10 MG Tab PO SCH (08:11)
[2017-12-24] MEDS: Aspirin/Dipyridamole 200-25 MG Cap.ER PO SCH ×2 (08:11→20:35)
[2017-12-24] MEDS: Docusate Sodium 100 MG Cap PO SCH ×2 (08:11→20:33)
[2017-12-24] MEDS: Vitamin B Complex Tab.ER PO SCH (08:11)
[2017-12-24] MEDS: Beta-Carotene (Vitamin A) w/Vitamin C & E plus Minerals Tab PO SCH ×2 (08:11→20:34)
[2017-12-24] MEDS: Calcium Carbonate/Vitamin D3 1250 MG-200 Unit Tab PO SCH ×2 (08:11→20:35)
[2017-12-24] MEDS: Cyanocobalamin (Vitamin B12) 1,000 MCG Tab PO SCH (08:11)
[2017-12-24] MEDS: Gabapentin 300 MG Cap PO SCH ×3 (08:12→17:55)
[2017-12-24] MEDS: amLODIPine 5 MG Tab PO SCH (08:12)
[2017-12-24] MEDS: Ferrous Sulfate 325 MG Tab PO SCH ×2 (12:09→17:55)
[2017-12-24] MEDS: Sertraline 50 MG Tab PO SCH (20:32)
[2017-12-24] MEDS: Gabapentin 100 MG Cap PO SCH (20:32)
[2017-12-24] MEDS: Simvastatin 20 MG Tab PO SCH (20:33)
[2017-12-25] MEDS: Heparin Sodium 5,000 Units/ML Vial SUBCUT SCH ×3 (03:03→18:38)
[2017-12-25] MEDS: Acetaminophen/HYDROcodone 325-5 MG Tab PO PRN ×2 (03:03→19:57)
[2017-12-25] MEDS: Omeprazole 20 MG Cap.CR PO SCH (06:19)
[2017-12-25] MEDS: Aspirin/Dipyridamole 200-25 MG Cap.ER PO SCH ×2 (08:47→19:56)
[2017-12-25] MEDS: Metoprolol Succinate 25 MG Tab.ER PO SCH (08:47)
[2017-12-25] MEDS: Cyanocobalamin (Vitamin B12) 1,000 MCG Tab PO SCH (08:47)
[2017-12-25] MEDS: predniSONE 10 MG Tab PO SCH (08:47)
[2017-12-25] MEDS: amLODIPine 5 MG Tab PO SCH (08:47)
[2017-12-25] MEDS: Calcium Carbonate/Vitamin D3 1250 MG-200 Unit Tab PO SCH ×2 (08:48→19:57)
[2017-12-25] MEDS: Vitamin B Complex Tab.ER PO SCH (08:48)
[2017-12-25] MEDS: Docusate Sodium 100 MG Cap PO SCH ×2 (08:48→19:58)
[2017-12-25] MEDS: Cholecalciferol (Vitamin D3) 1,000 Unit Tab PO SCH (08:48)
[2017-12-25] MEDS: Gabapentin 300 MG Cap PO SCH ×3 (08:48→18:38)
[2017-12-25] MEDS: Beta-Carotene (Vitamin A) w/Vitamin C & E plus Minerals Tab PO SCH ×2 (08:48→19:57)
[2017-12-25] MEDS: tiZANidine 4 MG Tab PO PRN ×3 (08:52→19:57)
[2017-12-25] MEDS: Acetaminophen 325 MG Tab PO PRN (08:53)
[2017-12-25] MEDS: Ferrous Sulfate 325 MG Tab PO SCH ×2 (11:14→18:38)
[2017-12-25] MEDS: Simvastatin 20 MG Tab PO SCH (19:57)
[2017-12-25] MEDS: Gabapentin 100 MG Cap PO SCH (19:57)
[2017-12-25] MEDS: Sertraline 50 MG Tab PO SCH (19:57)
[2017-12-26] MEDS: Heparin Sodium 5,000 Units/ML Vial SUBCUT SCH ×3 (02:29→18:23)
[2017-12-26] MEDS: Acetaminophen/HYDROcodone 325-5 MG Tab PO PRN (02:29)
[2017-12-26] MEDS: Omeprazole 20 MG Cap.CR PO SCH (06:38)
[2017-12-26] MEDS: Acetaminophen 325 MG Tab PO PRN ×2 (07:55→19:13)
[2017-12-26] MEDS: Metoprolol Succinate 25 MG Tab.ER PO SCH (07:56)
[2017-12-26] MEDS: Calcium Carbonate/Vitamin D3 1250 MG-200 Unit Tab PO SCH ×2 (07:56→19:14)
[2017-12-26] MEDS: predniSONE 10 MG Tab PO SCH (07:56)
[2017-12-26] MEDS: Beta-Carotene (Vitamin A) w/Vitamin C & E plus Minerals Tab PO SCH ×2 (07:56→19:13)
[2017-12-26] MEDS: tiZANidine 4 MG Tab PO PRN ×2 (07:57→19:14)
[2017-12-26] MEDS: Docusate Sodium 100 MG Cap PO SCH ×2 (07:57→19:14)
[2017-12-26] MEDS: Gabapentin 300 MG Cap PO SCH ×3 (07:57→17:15)
[2017-12-26] MEDS: Cholecalciferol (Vitamin D3) 1,000 Unit Tab PO SCH (07:57)
[2017-12-26] MEDS: Vitamin B Complex Tab.ER PO SCH (07:57)
[2017-12-26] MEDS: Aspirin/Dipyridamole 200-25 MG Cap.ER PO SCH ×2 (07:57→19:14)
[2017-12-26] MEDS: Cyanocobalamin (Vitamin B12) 1,000 MCG Tab PO SCH (07:57)
[2017-12-26] MEDS: amLODIPine 5 MG Tab PO SCH (07:57)
--- NOTE | 2017-12-26 09:29 | PN ---
Progress Note for EL FRANCOIS Date: 12/26/2017 Room #: VM.217 SUBJECTIVE: The patient is still having problems with her bladder, not working. She will void maybe 200 mL at a time, but then she will have 900 mL of residual. Daughter is present in the room and would like to inquire with Neurosurgery if there is anything that could be done. She does have an appointment with Urology next week. Physical Therapy will be stopping services today on the patient. OBJECTIVE: Vital Signs: Her temperature is 36.6, pulse 86, blood pressure is 160/69, her respirations are 18, and sats are 94%. General: She is alert, pleasant to visit with. Heart: Regular rate and rhythm. Lungs: Clear to auscultation. The patient requires assistance to get out of bed. Abdomen: Soft. LABORATORY DATA: Her lab today shows that her white blood cell count 5.3, hemoglobin 11.3, and platelets are 183. Sodium is 132, potassium 4.1, creatinine 1.1, and glucose 52. Urine was checked last evening, which showed no signs of infection. IMPRESSION: 1. Sacral insufficiency fractures. 2. Herniated disk. 3. Urinary retention. 4. Hypertension. 5. Chronic depression. PLAN: We will inquire with Neurosurgery today, if there is possibly something they feel they could contribute to patient's lack of bladder function. She does have a Urology appointment set up next week. The patient right now is doing intermittent cathing cares, which family feels that they could do at discharge. This is a documented [id number] evaluation for the patient in need of home health. The patient would be homebound as she is not able to walk more than 200 feet without becoming extremely fatigued. She uses a walker. She depends on other people to bring her to appointments. She is having much pain with her back due to recent fractures. The patient will need to have monitoring of her blood pressure as well as urinary catheter cares as the patient would be a set up for acute renal failure. Her bladder would not be able to be drained, if it is not working on its own. We will anticipate seeing the patient in 3 weeks to see me. We will have Dr. Emma Ching cover the patient in my absence. GM12/26/2017 08:54:48 MODL: 12/26/2017 09:18:17 /[id number]
[2017-12-26] MEDS: Diclofenac Sodium 1% Gel 100 GM Tube TOP PRN ×2 (12:14→16:43)
[2017-12-26] MEDS: Ferrous Sulfate 325 MG Tab PO SCH ×2 (12:15→17:15)
[2017-12-26] MEDS: Sertraline 50 MG Tab PO SCH (19:13)
[2017-12-26] MEDS: Simvastatin 20 MG Tab PO SCH (19:14)
[2017-12-26] MEDS: Gabapentin 100 MG Cap PO SCH (19:14)
[2017-12-27] MEDS: Heparin Sodium 5,000 Units/ML Vial SUBCUT SCH ×2 (02:26→12:09)
[2017-12-27] MEDS: Acetaminophen/HYDROcodone 325-5 MG Tab PO PRN (02:26)
--- NOTE | 2017-12-27 04:00 | DISCH ---
PRIMARY DIAGNOSES: 1. Sacral insufficiency fractures. 2. Intractable back pain. 3. Herniated disk at L3-L4. 4. Urinary retention. 5. Hypertension. 6. Chronic depression. 7. Chronic kidney disease. 8. Gastroesophageal reflux disease. 9. Polymyalgia rheumatica. 10.Pseudomonas urinary tract infection. 11.Asthma. 12.Osteoporosis. 13.Hypercholesterolemia. 14.Vitamin D deficiency. 15.Anxiety disorder. SUMMARY OF ADMIT HISTORY AND PHYSICAL: The patient is an 87-year-old female who presented back to swing bed after having been on acute care at [facility] from 11/30/2017, to 12/02/2017, and then at [facility] from 12/02/2017, to 12/09/2017. The patient was having intractable back pain, could not ambulate around, need an MRI to diagnose back issues. She was found to have an S1, S2 compression fracture as well as L3-L4 herniated disk. The patient was seen by Interventional Radiology, felt not to have intervention as needed. She was having problems with urinary retention. She had been restarted on her Neurontin for pain control. She had problems with urinary retention when she came presented to [facility]. A urine culture was done. The patient returns to [facility] for therapy for physical therapy and occupational therapy. To note, she had been having a difficult time with therapies in [place], but she had been quite busy and was very willing to participate with physical therapy. SUMMARY OF [facility] COURSE: The patient did receive physical therapy while she is here. She was noted to have a bladder infection with Pseudomonas aeruginosa. She was treated with Cipro 250 b.i.d. for 7 days. The patient had originally been started on Bactrim but switched to Cipro once sensitivities were noted. The patient's Lidoderm patch really was not helping, so that was changed to p.r.n. Her dose of gabapentin had been increased. The patient had 3 different attempts of bladder training with clamping every 2 hours, every 4 hours, and removing catheter. However, her bladder function did not resume. The patient did have an episode of some chest pain, which showed normal EKG. The patient responded to be giving some antacid as well as some anxiety treatment. The patient's blood pressure was noted to still be elevated. Her amlodipine was increased to help with better control. The patient still continued urinary retention after visiting on the phone with Urology and who felt intermittent catheterization was the best bet. She is set up to see Urology on 01/01/2018. It was noted I did visit with Neurosurgery on 12/26/2017, to review her MRI to make certain that there was no processes that would be causing urinary retention and they did not feel so. They did recommend trying some topical Voltaren gel, which we did. Also to note, patient's dose of prednisone was increased to help with her polymyalgia and did seem to help with her pain control. She did get advance with physical therapy with being able to walk to get out of bed. Unfortunately, her bladder was not responding to every 8 hours catheterization and so at the time of discharge, she most likely will go home with an indwelling catheter that will be left in until her Urology appointment on 01/01/2018. The patient's lab work that was last checked on 12/26/2017, showed her white blood cell count 5.3, hemoglobin 11.3, platelets 183 with 65 segs, 22 lymphocytes. Sodium was 132, potassium 4.1, creatinine 1.0. GFR is 52, which has improved greatly. Her glucose was 90. Urinalysis was checked on 12/25/2017, which was negative for bladder infection. Dr. Emma Ching will see the patient in my absence on the day of discharge of 12/27/2017. To note on 12/26/2017, her progress note did document a face-to- face evaluation for need of home health services for home physical therapy. Her medications at the time of discharge will be calcium with vitamin D 500/400 one pill twice a day, simvastatin 40 mg 1 pill at bedtime, Toprol-XL 25 mg extended release. She takes 3 pills daily, Aggrenox 200/25 one pill twice a day, albuterol 2 puffs q.4 hours p.r.n., vitamin D 1000 units 1 pill daily, tizanidine 2 mg 1 pill 3 times a day as needed for muscle spasm, gabapentin was actually increased to at least 300 mg 3 times a day for patient. Her vitamin B complex 1 pill daily, MaxiVision 2 pills twice a day, Prilosec 20 mg 1 pill daily, Xanax 0.25 mg 1 pill twice a day as needed, Zoloft 50 mg 1 pill at bedtime, Imodium 1-2 tablets daily p.r.n., vitamin B12 1000 mcg 1 pill daily, Tylenol 325 two pills every 4 hours as needed, levothyroxine 175 mcg 1 pill daily, docusate 100-200 mg 1 pill twice a day as needed, prednisone was increased to 10 mg daily (meant to be short-term), Robitussin 100 mg q.4 hours p.r.n., Lidoderm patch was discontinued. At the time of discharge, ferrous gluconate 325 one pill twice a day. The patient is to follow up to see me in 3 weeks' time, and I stated if she has a problem, then she will need to be seen by on-call provider, Emma Ching. The patient is code level 2 status at the time of discharge. Her diet is normal. She uses a wheeled walker for ambulation. It is possible that the patient may benefit by a back brace. She also may benefit by an epidural steroid shot as well. GM12/26/2017 13:50:18 MODL: 12/27/2017 03:53:39 /[id number]
[2017-12-27 06:09] VITALS: BP 153/71
[2017-12-27] MEDS: Omeprazole 20 MG Cap.CR PO SCH (06:52)
[2017-12-27] MEDS: predniSONE 10 MG Tab PO SCH (08:07)
[2017-12-27] MEDS: Docusate Sodium 100 MG Cap PO SCH (08:07)
[2017-12-27] MEDS: Beta-Carotene (Vitamin A) w/Vitamin C & E plus Minerals Tab PO SCH (08:07)
[2017-12-27] MEDS: Cyanocobalamin (Vitamin B12) 1,000 MCG Tab PO SCH (08:07)
[2017-12-27] MEDS: Diclofenac Sodium 1% Gel 100 GM Tube TOP PRN (08:07)
[2017-12-27] MEDS: Vitamin B Complex Tab.ER PO SCH (08:07)
[2017-12-27] MEDS: Aspirin/Dipyridamole 200-25 MG Cap.ER PO SCH (08:07)
[2017-12-27] MEDS: Calcium Carbonate/Vitamin D3 1250 MG-200 Unit Tab PO SCH (08:07)
[2017-12-27] MEDS: Gabapentin 300 MG Cap PO SCH ×2 (08:07→12:09)
[2017-12-27] MEDS: amLODIPine 5 MG Tab PO SCH (08:08)
[2017-12-27] MEDS: Cholecalciferol (Vitamin D3) 1,000 Unit Tab PO SCH (08:08)
[2017-12-27] MEDS: Metoprolol Succinate 25 MG Tab.ER PO SCH (08:08)
[2017-12-27] MEDS: tiZANidine 4 MG Tab PO PRN (08:08)
[2017-12-27] MEDS: Acetaminophen 325 MG Tab PO PRN (08:09)
[2017-12-27] MEDS: Ferrous Sulfate 325 MG Tab PO SCH (12:09)
== END 2017-12-27 12:05 | disposition home health service (06) | DRG 560 ==
LOC: VM.MS 09:29 → UNDOADMIN 09:30 → VM.MS 09:30
PROVIDERS: ADMIT Family Medicine; ATTEND Family Medicine
DX: M48.58XD Collapsed vertebra, not elsewhere classified, sacral and sacrococcygeal region, subsequent encounter for fracture with routine healing (principal); I13.0 Hypertensive heart and chronic kidney disease with heart failure and stage 1 through stage 4 chronic kidney disease, or unspecified chronic kidney disease; I50.32 Chronic diastolic (congestive) heart failure; M51.06 Intervertebral disc disorders with myelopathy, lumbar region; N39.0 Urinary tract infection, site not specified; M54.5 Low back pain; M35.3 Polymyalgia rheumatica; B96.5 Pseudomonas (aeruginosa) (mallei) (pseudomallei) as the cause of diseases classified elsewhere; Z79.899 Other long term (current) drug therapy; Z66 Do not resuscitate; E03.9 Hypothyroidism, unspecified; N18.9 Chronic kidney disease, unspecified; J45.909 Unspecified asthma, uncomplicated; E78.5 Hyperlipidemia, unspecified; F32.9 Major depressive disorder, single episode, unspecified; Z95.4 Presence of other heart-valve replacement; I67.9 Cerebrovascular disease, unspecified; E53.8 Deficiency of other specified B group vitamins; M19.019 Primary osteoarthritis, unspecified shoulder; G89.29 Other chronic pain; M10.9 Gout, unspecified; D50.9 Iron deficiency anemia, unspecified; H35.30 Unspecified macular degeneration; Z96.653 Presence of artificial knee joint, bilateral; Z95.1 Presence of aortocoronary bypass graft; R07.89 Other chest pain; R11.10 Vomiting, unspecified
CPT/HCPCS: 36415; 51701; 51702; 51798; 80048; 80053; 81001; 82607; 84443; 85025; 87077; 87086; 87186; 93005; 97110-GP; 97116-GP; 97161-GP; 97165-GO; 97530-GP; 97535-GO; A9270-GY; J1644

== ENCOUNTER 2019-12-29 11:29 | Emergency (ER) | payer MEDICARE, OTHER ==
--- NOTE | 2019-12-29 11:58 | EDM.PDOC ---
ED HPI GENERAL MEDICAL PROBLEM - General Stated Complaint: ER Time Seen by Provider: 12/29/19 11:50 Source of Information: Reports: Patient, Provider - History of Present Illness INITIAL COMMENTS - FREE TEXT/NARRATIVE: Patient comes emergency today from the [facility] for back and hip pain after a fall on the fourth. The patient has some chronic back pain that she is struggled with for many years. She also relates that her right leg has always been "jumpy". She tripped and fell landing on her left side on the fourth of this month. She did not hit her head. She did not lose conscious. She has no head neck or upper back pain. She does struggle with chronic back pain although her chronic lower back pain is somewhat worse after the fall. She also complains of pain to her pelvis region on both sides. Today when they tried to get her up her leg was very jumpy and it was difficult for them to ambulate her they contacted her primary care provider who told her to come to the emergency department. Patient has had no change in her bowel or bladder. No paresthesias of her lower extremity other than this chronic "jumpiness" of the right lower extremity. She does not currently see PT at the [facility] according to staff that is present as well as the patient. - Related Data Allergies Allergy/AdvReac Type Severity Reaction Status Date / Time oxycodone AdvReac Confusion Verified 12/26/17 12:03 Home Meds: Home Meds Aspirin/Dipyridamole [Aggrenox 200-25 MG] 1 cap PO BID 09/26/14 [History] Calcium Carbonate/Vitamin D3 [Calcium 500-Vit D3 400 Tablet] 1 each PO BIDMEALS 09/26/14 [History] Metoprolol Succinate [Toprol XL] 75 mg PO DAILY 09/26/14 [History] Simvastatin 40 mg PO BEDTIME 09/26/14 [History] Albuterol [Proventil HFA] 2 puff INH Q4H PRN 11/07/14 [History] ALPRAZolam [Xanax] 0.25 mg PO BID PRN 03/06/17 [History] Cholecalciferol (Vitamin D3) [Vitamin D3] 1,000 unit PO DAILY 03/06/17 [History] Gabapentin [Neurontin] 100 mg PO BEDTIME 03/06/17 [History] Gabapentin [Neurontin] 200 mg PO TIDMEALS 03/06/17 [History] Loperamide [Imodium] 1 - 2 tab PO DAILY PRN MDD 8 caps per day 03/06/17 [History ] Maxivision 2 tab PO BID 03/06/17 [History] Omeprazole Magnesium [Prilosec Otc] 20 mg PO DAILY 03/06/17 [History] Sertraline [Zoloft] 50 mg PO BEDTIME 03/06/17 [History] Vitamin B Complex [Super B-50 Complex] 1 tab PO DAILY 03/06/17 [History] tiZANidine HCl [Tizanidine HCl] 2 mg PO TID PRN 03/06/17 [History] Cyanocobalamin (Vitamin B12) [Vitamin B12] 1,000 mcg PO DAILY 08/02/17 [History] Acetaminophen [Tylenol] 650 mg PO Q4H PRN 11/30/17 [History] Docusate Sodium 100 - 200 mg PO BID PRN 11/30/17 [History] Levothyroxine 175 mcg PO DAILY 11/30/17 [History] guaiFENesin [Robitussin] 100 mg PO Q4H PRN 11/30/17 [History] Lidocaine 5% [Lidoderm 5%] 1 patch TOP DAILY 12/09/17 [History] Ferrous Gluconate 324 mg PO BID 12/11/17 [History] Acetaminophen/HYDROcodone [[place]ia 325-5 MG] 1 tab PO Q4H PRN tablet 12/26/17 [Rx ] predniSONE 10 mg PO DAILY #30 tablet 12/26/17 [Rx] Past Medical History HEENT History: Reports: Impaired Vision, Macular Degeneration Cardiovascular History: Reports: Hypertension, Other (See Below) Other Cardiovascular History: ankle edema Respiratory History: Reports: Asthma Gastrointestinal History: Reports: Other (See Below) Other Gastrointestinal History: Occasional fecal incontinence - does mostly have control Genitourinary History: Reports: Retention, Urinary, Urinary Incontinence Musculoskeletal History: Reports: Back Pain, Chronic, Other (See Below) Other Musculoskeletal History: shoulder pain Neurological History: Reports: CVA, TIA Psychiatric History: Reports: Anxiety Endocrine/Metabolic History: Reports: Hypothyroidism - Past Surgical History HEENT Surgical History: Reports: Cataract Surgery Cardiovascular Surgical History: Reports: Coronary Artery Bypass, Valve Replacement Female Surgical History: Reports: Breast Biopsy Other Neurological Surgeries/Procedures: epidural nerve block Musculoskeletal Surgical History: Reports: Hip Replacement, Knee Replacement Other Musculoskeletal Surgeries/Procedures:: Right hip replacement, bilateral knee replacement Social & Family History - Family History Family Medical History: Noncontributory - Caffeine Use Caffeine Use: Reports: Coffee ED ROS GENERAL - Review of Systems Review Of Systems: Comprehensive ROS is negative, except as noted in HPI. ED EXAM,LOWER BACK PAIN/INJURY - Physical Exam Exam: See Below Exam Limited By: No Limitations General Appearance: Alert, WD/WN, No Apparent Distress, Anxious Head: Atraumatic, Normocephalic Neck: Normal Inspection, Supple, Non-Tender Respiratory/Chest: No Respiratory Distress, Lungs Clear, Normal Breath Sounds, No Accessory Muscle Use Cardiovascular: Normal Peripheral Pulses, Regular Rate, Rhythm GI/Abdominal: Normal Bowel Sounds, Soft Back Exam: Normal Inspection (except for kyphosis) Extremities: Normal Inspection (She has some bruising on bilateral extremity that appear to be old that she relates from her fall 4 days ago. There is no overt bony deformity joint swelling or injury. Even when she is sitting in the chair she has a rather jumpy constantly flexing right leg. She has normal DTRs in bilateral lower extremities. She is able to stand with the assist of 1 but is quite unsteady with that right leg.), Normal Capillary Refill, Pedal Edema (1 + bilaterally) Neurological: Alert, Normal Mood/Affect, Normal Dorsiflexion, Normal Plantar Flexion, Oriented x 3 Psychiatric: Normal Affect Skin Exam: Warm, Dry, Intact, Normal Color, No Rash Course - Radiology Interpretation Free Text/Narrative:: X-ray of the lumbar spine per radiology no acute findings. X-ray of the pelvis per radiology no acute findings. - Re-Assessments/Exams Free Text/Narrative Re-Assessment/Exam: 12/29/19 14:09 This really sounds like a worsening of the chronic restless leg that the patient is struggled with for quite some time that she has not been diagnosed with. I did discuss the case with the patient's primary care provider who happened to be in the emergency department today. We will have her follow-up with physical therapy at the [facility] and start her on Mirapex at night. Primary care provider as well as the patient are comfortable with this plan and her questions are answered. Departure - Departure Time of Disposition: 13:08 Disposition: DC/[facility]fer to [facility] Clinical Impression: Restless leg - Discharge Information Instructions: Restless Legs Syndrome Referrals: Marychuy Hernandez MD [Primary Care Provider] - Additional Instructions: Continue all previous therapies at the correction. PT to see evaluate and treat for Restless leg of the right lower extremity. Start Mirapex 0.125mg at HS. RX sent with the patient. Update PCP on the started Medication and Plan of Care. Return to the ED if new or worsening symptoms. Sepsis Event Note - Focused Exam Date Exam was Performed: 12/29/19 Time Exam was Performed: 14:09 - Assessment/Plan Assessment:: Acute worsening of Chronic restless leg right sided. Plan: Continue all previous therapies at the [facility]. PT to see evaluate and treat for Restless leg of the right lower extremity. Start Mirapex 0.125mg at HS. RX sent with the patient. Update PCP on the started Medication and Plan of Care. Return to the ED if new or worsening symptoms.
--- NOTE | 2019-12-29 12:53 | CR ---
[id number] RAD/RAD Pelvis 1-2V Exam: RAD Pelvis 1-2V Indication:FALL, LOWER BACK AND PELVIS PAIN. Comparison: CT from 2018. Discussion: Partially visualized right femoroacetabular prosthesis. Components are normal alignment. Deformity of the right inferior pubic ramus not seen on CT from 2018. Findings are consistent with fracture. Radiographic appearance suggests a chronic abnormality. No evidence of an acute fracture. Impression: No definitive evidence of acute pelvic fracture. David Bruce MD 12/29/19 [id number] Thank you for allowing us to participate in the care of your patient.
--- NOTE | 2019-12-29 12:54 | CR ---
[id number] RAD/RAD Lumbar Spine 2-3V Exam: RAD Lumbar Spine 2-3V Indication:FALL, LOWER BACK PAIN AND PELVIS PAIN. Comparison: No prior imaging for comparison. Discussion: Advanced changes of spondylosis throughout the visualized portion of the spine. No evidence of an acute fracture. Impression: No acute findings. David Bruce MD 12/29/19 [id number] Thank you for allowing us to participate in the care of your patient.
[2019-12-29 17:04] VITALS: BP 116/50; PULSE 74
== END 2019-12-29 13:30 ==
LOC: VM.ED 11:29
DX: G25.81 Restless legs syndrome (principal); J45.909 Unspecified asthma, uncomplicated; I10 Essential (primary) hypertension; E03.9 Hypothyroidism, unspecified; F41.9 Anxiety disorder, unspecified; Z79.899 Other long term (current) drug therapy; Z86.73 Personal history of transient ischemic attack (TIA), and cerebral infarction without residual deficits
CPT/HCPCS: 72100; 72170; 99284; 99284-GF